=== PATIENT | male | born 1945 | race Caucasian/White ===

== ENCOUNTER → 2017-09-03 11:36 | Outpatient (CLI) | payer MEDICARE, OTHER, SELFPAY ==
[2017-09-03 15:04] LABS: Adenovirus F 40/41 Not Detected (Not Detect); Astrovirus Not Detected (Not Detect); Campylobacter Not Detected (Not Detect); Clostridium difficile toxin AB Not Detected (Not Detect); Cryptosporidium Not Detected (Not Detect); Cyclospora cayetanensis Not Detected (Not Detect); Entamoeba histolytica Not Detected (Not Detect); Enteroaggregative E.coli Not Detected (Not Detect); Enteropathogenic E.coli Not Detected (Not Detect); Enterotoxigenic E.coli It/st Not Detected (Not Detect); Giardia lamblia Not Detected (Not Detect); Norovirus GI/GII Not Detected (Not Detect); Plesiomonsa shigelloides Not Detected (Not Detect); Rotavirus A Not Detected (Not Detect); Salmonella Not Detected (Not Detect); Shiga-like toxin-prod E.coli Not Detected (Not Detect); Shigella/Enteroinvasive E.coli Not Detected (Not Detect); Vibrio Not Detected (Not Detect); Vibrio cholerae Not Detected (Not Detect); Yersinia enterocolitica Not Detected (Not Detect)
== END ==
PROVIDERS: PCP Internal Medicine; Visit Provider Internal Medicine
DX: R19.7 Diarrhea, unspecified (principal)
CPT/HCPCS: 87507

== ENCOUNTER → 2017-09-27 09:52 | Outpatient (CLI) | payer MEDICARE, BC, SELFPAY ==
[2017-09-27 10:22] LABS: Hematocrit 55.1 % (41-53); Hemoglobin 18.2 g/dL (13.5-17.5)
[2017-09-27 10:30] LABS: 585 Gram Check PASS; Zero Check Sebra Scale PASS
[2017-09-27 10:50] LABS: Amount Collected in g 585 GRAM; Dizziness NO; Postdiastolic BP 84; Postsystolic BP 171; Prediastolic 99; Presystolic 164; Pulse 89; Site of phlebotomy RIGHT AC; Swelling NO; Therapeutic Phleb Comment NO COMMENT
== END ==
PROVIDERS: PCP Internal Medicine; Visit Provider Urology
DX: N40.1 Benign prostatic hyperplasia with lower urinary tract symptoms (principal); R71.8 Other abnormality of red blood cells
CPT/HCPCS: 36415; 84153; 85014; 85018; 99195

== ENCOUNTER → 2018-04-12 09:52 | Outpatient (CLI) | payer MEDICARE, OTHER, SELFPAY ==
[2018-04-12 11:43] LABS: 585 Gram Check PASS; Amount Collected in g 585 GRAM; Dizziness NO; Postdiastolic BP 76; Postsystolic BP 134; Prediastolic 80; Presystolic 152; Pulse 94; Site of phlebotomy RIGHT AC; Swelling NO; Therapeutic Phleb Comment NO COMMENT; Zero Check Sebra Scale PASS
[2018-04-12 12:54] LABS: Add Manual Diff / Slide Review NO; Basophils Absolute Auto 100 /uL (0-100); Basophils Percent Auto 0.8 % (0-2); Eosinophils Absolute Auto 100 /uL (0-450); Eosinophils Percent Auto 0.9 % (2-4); Hematocrit 55.5 % (41-53); Hemoglobin 18.4 g/dL (13.5-17.5); Lymphocytes Absolute Auto 1200 /uL (1100-4500); Lymphocytes Percent Auto 15.7 % (25-40); Mean Corpuscular HGB Conc 33.2 % (30-36); Mean Corpuscular Hemoglobin 28.7 PG (26-34); Mean Corpuscular Volume 86.5 fL (80-100); Monocytes Absolute Auto 700 /uL (0-900); Monocytes Percent Auto 9.8 % (3-14); Neutrophils Absolute Auto 5600 /uL (1500-7000); Neutrophils Percent Auto 72.8 % (50-75); Platelet Count 199 X10^3/uL (150-400); Red Blood Cell Count 6.41 X10^6/uL (4.5-5.9); Red Cell Distribution Width 18.5 % (11.6-14.8); White Blood Cell Count 7.6 X10^3/uL (4.5-11.0)
== END ==
PROVIDERS: PCP Internal Medicine; Visit Provider Internal Medicine
DX: D75.1 Secondary polycythemia (principal)
CPT/HCPCS: 85025; 99195

== ENCOUNTER 2018-06-23 05:45 | Inpatient (IN) | payer MEDICARE, OTHER, SELFPAY ==
[2018-06-23] VITALS (13 sets, daily range): BP systolic 92–140; BP diastolic 54–76; PULSE 76–129; RESP 14–20; TEMP 36.6–39.6; O2SAT 94–99; BMI 29.0
--- NOTE | 2018-06-23 | DI.RAD.S_ITS ---
PROCEDURE: XR KUB INDICATIONS: nephrolithiasis TECHNIQUE: One view of the abdomen acquired. COMPARISON: None. FINDINGS: Surgical changes and devices: None. Bowel: Bowel gas pattern is normal. Soft tissues: No suspicious abdominal calcifications. Numerous round calcifications are seen in bilateral lower pelvis more prominent on the right side, likely represent phleboliths. Visualized solid organ contours appear normal in size. Bones: No suspicious bony lesions. IMPRESSION: No gross renal stone or ureteral stone is seen. Likely phleboliths in lower pelvis. Dictated by: Brendan Mason M.D. on 06/23/2018 at 14:14 Approved by: Brendan Mason M.D. on 06/23/2018 at 14:15
--- NOTE | 2018-06-23 05:51 | DI.RAD.S_ITS ---
PROCEDURE: XR CHEST 1V INDICATIONS: sepsis TECHNIQUE: One view of the chest was acquired. COMPARISON: [facility], , CHEST 1 VIEW, 03/31/2015, 2:54. FINDINGS: Surgical changes and devices: None. Lungs and pleura: Lungs are clear. No pleural effusions or pneumothorax. Mediastinum: Mediastinal contours appear normal. Heart size is normal. Bones and chest wall: No suspicious bony lesions. Overlying soft tissues appear unremarkable. IMPRESSION: No acute cardiopulmonary pathology. Dictated by: Brendan Mason M.D. on 06/23/2018 at 10:18 Approved by: Brendan Mason M.D. on 06/23/2018 at 10:19
[2018-06-23 06:14] LABS: Add Manual Diff / Slide Review NO; Basophils Absolute Auto 0 /uL (0-100); Basophils Percent Auto 0.2 % (0-2); Eosinophils Absolute Auto 0 /uL (0-450); Eosinophils Percent Auto 0.1 % (2-4); Hemoglobin 16.4 g/dL (13.5-17.5); Lymphocytes Absolute Auto 300 /uL (1100-4500); Mean Corpuscular HGB Conc 33.3 % (30-36); Mean Corpuscular Hemoglobin 28.8 PG (26-34); Mean Corpuscular Volume 86.2 fL (80-100); Monocytes Absolute Auto 300 /uL (0-900); Monocytes Percent Auto 2.4 % (3-14); Neutrophils Absolute Auto 10200 /uL (1500-7000); Neutrophils Percent Auto 94.3 % (50-75); Platelet Count 160 X10^3/uL (150-400); Red Blood Cell Count 5.69 X10^6/uL (4.5-5.9); Red Cell Distribution Width 14.8 % (11.6-14.8); White Blood Cell Count 10.8 X10^3/uL (4.5-11.0)
[2018-06-23 06:21] LABS: Lactate (Lactic Acid) 1.4 mmol/L (0.7-2.1)
--- NOTE | 2018-06-23 06:25 | ED_ITS ---
HPI - Fever General Chief Complaint: Fever Stated Complaint: TEMP FOR 4 DAYS UP TO 102, SHAKING Time Seen by Provider: 06/23/18 05:48 Source: patient and family Mode of arrival: ambulatory Limitations: no limitations History of Present Illness HPI Narrative: 72-year-old male nonsmoker history of chronic kidney disease, hypertension, polycythemia presents with his and a chief complaint of fever chills and generalized weakness for the past few days. He had a left total knee arthroplasty on May 06 and things went quite well and the aftermath of the surgery. He had his 6 week follow-up and all was well. patient started feeling under the weather few days ago and is now profoundly weak and lightheaded with dark concentrated urine. He has had nausea but no vomiting. He has some general gastrointestinal upset with some loose stools but no significant diarrhea. Patient has some pain in his left knee and it feels warm to the touch but denies any redness or swelling. He is able to ambulate without much difficulty. He contacted his primary care provider whom sent him here for evaluation. He did not have his flu shot but denies any runny nose, sore throat, headache, cough or shortness of breath. patient took extra strength Tylenol at 5:00 a.m. complaint: fever, malaise and weakness Onset (ago): day(s) Maximum Temperature: 103 F Temperature Source: oral Associated symptoms: chills Treatments prior to arrival fever: acetaminophen Related Data Home Medications Medication Instructions Recorded Confirmed aspirin 81 mg tablet,delayed 81 mg PO DAILY 06/17/18 06/23/18 release lisinopril 10 mg tablet 10 mg PO DAILY 06/17/18 06/23/18 testosterone cypionate 06/17/18 06/17/18 Resprionics Dreamstation CPAP #1 ea 06/19/18 06/19/18 amlodipine 5 mg tablet 5 mg PO DAILY 06/19/18 06/23/18 nicotinamide Ribdside Chloride 250 mg PO DAILY 06/19/18 06/23/18 nortriptyline 25 mg capsule 25 mg PO BID cap 06/19/18 06/23/18 pantoprazole 40 mg tablet,delayed 40 mg PO DAILY 06/19/18 06/23/18 release Hjxhrv-Ecyc-Tueyux-Fish Oil 1 cap PO DAILY 06/23/18 06/23/18 Trimix 06/23/18 Tumeric 500 mg PO DAILY 06/23/18 06/23/18 acetaminophen [Tylenol Extra 1 tab PO PRN PRN 06/23/18 06/23/18 Strength] cholecalciferol (vitamin D3) 2,000 unit PO DAILY 06/23/18 06/23/18 [Vitamin D3] cyanocobalamin (vitamin B-12) 1,000 mcg IM QMONTH 06/23/18 06/23/18 docosahexanoic acid [Algal [place]-3 1 tab PO DAILY 06/23/18 06/23/18 DHA] potassium 10 meq PO 2XW 06/23/18 06/23/18 Allergies Allergy/AdvReac Type Severity Reaction Status Date / Time EGGS Allergy Mild Uncoded 06/23/18 06:01 Review of Systems Review of Systems ROS Unobtainable: All systems reviewed & are unremarkable except as noted in HPI and below Constitutional Reports chills, Reports fever(s), Denies lethargy and Denies weakness Eyes Denies change in vision, Denies eye discharge, Denies irritation and Denies loss of vision ENT Ears, Nose, Mouth, and Throat: Denies change in voice, Denies neck pain and Denies sore throat Cardiovascular Denies chest pain, Denies irregular heart rhythm, Denies lightheadedness, Denies palpitations, Denies dyspnea, Denies dyspnea on exertion and Denies orthopnea Respiratory Denies cough, Denies dyspnea, Denies dyspnea on exertion and Denies wheezing Gastrointestinal Gastrointestinal: Denies abdominal pain, Denies change in bowel habits, Denies diarrhea, Denies nausea and Denies vomiting Genitourinary Denies hematuria, Denies flank pain, Denies urinary incontinence and Denies urinary urgency Musculoskeletal Reports limited range of motion and Denies neck pain Integumentary/Breasts Denies pruritus, Denies erythema, Denies rash and Denies wounds Neurologic Denies confusion, Denies loss of vision and Denies weakness Psychiatric Denies anxiety, Denies confusion, Denies depression, Denies homicidal ideation and Denies suicidal ideation Endocrine Denies palpitations Hematologic/Lymphatic Denies easy bruising Allergic/Immunologic Denies wheezing [facility] Medical History (Updated 06/23/18 @ 06:47 by Sergey Mejias DO) Primary insomnia (Chronic) Obstructive sleep apnea of adult (Chronic) Arthritis (Acute) Global amnesia (Acute) HTN (hypertension) (Acute) Hypogonadism (Acute) Polycythemia (Acute) Surgical History Total knee replacement status (Acute) Social History Smoking Status: Never smoker Social History Smoking Status: Never smoker Exam Narrative Exam Narrative: GENERAL: 72-year-old male appears stated age, he is in good spirits but clearly sick HEAD: Atraumatic. Normocephalic. No temporal or scalp tenderness. EYES: Pupils equal round and reactive. Extraocular motions intact. No scleral icterus. No injection or drainage. ENT: Nose without bleeding, purulent drainage or septal hematoma. Throat without erythema, tonsillar hypertrophy or exudate. Uvula midline. Airway patent. NECK: Trachea midline. No JVD or lymphadenopathy. Supple, nontender, no meningeal signs. CARDIOVASCULAR: Tachycardic but regular rhythm without murmurs, gallops, or rubs. RESPIRATORY: Clear to auscultation. Breath sounds equal bilaterally. No wheezes, rales, or rhonchi. GASTROINTESTINAL: Abdomen soft, non-tender, nondistended. No hepato- splenomegaly, or palpable masses. No guarding. EXTREMITIES: Left knee is warm but there is no erythema or effusion. He has a very impressive range of motion both passively and actively. Incisions are healing appropriately No clubbing, cyanosis, or edema. No joint tenderness, effusion, or edema noted. BACK: Nontender without deformity or crepitance. No flank tenderness. NEURO: AOx3. SKIN: No rash or erythema. Initial Vital Signs Initial Vital Signs: Vital Signs Temperature 103 F H 06/23/18 06:01 Pulse Rate 129 H 06/23/18 06:01 Respiratory Rate 20 06/23/18 06:01 Blood Pressure 137/76 06/23/18 06:01 Pulse Oximetry 99 06/23/18 06:01 Course Orders Ordered: ED Orders 06/23/18 05:51 XR chest 1V Stat 06/23/18 06:01 Complete Blood Count AUTO DIFF Stat Comprehensive Metabolic Panel Stat Lactate (Lactic Acid) Stat Procalcitonin Stat 06/23/18 06:19 GI Panel (Film Array) Stat 06/23/18 06:23 Influenza A and B by PCR Rapid Stat 06/23/18 06:33 Blood Culture Stat Urine Microscopic Stat Sodium Chloride (Normal Saline 0.9%) 3,333.9 mls @ 1,111.3 mls/hr 30 ml/kg infuse over 3 hr (3333.9 ml) IV NOW ONE Stop: 06/23/18 09:01 Last Admin: 06/23/18 06:35 Dose: 1,111.3 mls/hr Ceftriaxone Sodium/Dextrose (Rocephin) 1 gm in 50 mls @ 100 mls/hr IV NOW ONE Stop: 06/23/18 06:59 Last Admin: 06/23/18 06:36 Dose: 100 mls/hr Discontinued Medications Acetaminophen (Tylenol) 975 mg PO NOW ONE Stop: 06/23/18 06:20 Vital Signs - 8 hr 06/23/18 06:01 Temperature 103 F H Pulse Rate 129 H Respiratory Rate 20 Blood Pressure 137/76 Pulse Oximetry 99 MDM - Fever Lab Data Result diagrams: 06/23/18 06:01 06/23/18 06:01 Lab Results 06/23/18 06/23/18 06/23/18 Range/Units 06:01 06:01 06:01 WBC 10.8 (4.5-11.0) X10^3/uL RBC 5.69 (4.5-5.9) X10^6/uL Hgb 16.4 (13.5-17.5) g/dL Hct 49.0 (41-53) % MCV 86.2 (80-100) fL MCH 28.8 (26-34) PG MCHC 33.3 (30-36) % RDW 14.8 (11.6-14.8) % Plt Count 160 (150-400) X10^3/uL Neut % (Auto) 94.3 H (50-75) % Lymph % (Auto) 3.0 L (25-40) % [place] % (Auto) 2.4 L (3-14) % Eos % (Auto) 0.1 L (2-4) % Baso % (Auto) 0.2 (0-2) % Neut # (Auto) 54052 H (8440-6870) /uL Lymph # (Auto) 300 L (5058-2045) /uL [place] # (Auto) 300 (0-900) /uL Eos # (Auto) 0 (0-450) /uL Baso # (Auto) 0 (0-100) /uL Sodium 134 L (137-145) mmol/L Potassium 4.1 (3.4-5.1) mmol/L Chloride 101 (98-107) mmol/L Carbon Dioxide 22 (22-32) mmol/L BUN 22 H (9-20) mg/dL Creatinine 1.20 (0.66-1.25) mg/dL Estimated GFR 59.7 L (>60) mL/min BUN/Creatinine Ratio 18.3 (6-22) Glucose 121 H (80-110) mg/dL Lactate 1.4 (0.7-2.1) mmol/L Calcium 9.1 (8.4-10.2) mg/dL Total Bilirubin 2.3 H (0.2-1.3) mg/dL AST 23 (17-59) IU/L ALT 19 L (21-72) IU/L Alkaline Phosphatase 93 (38-126) U/L Total Protein 7.3 (6.3-8.2) g/dL Albumin 4.1 (3.5-5.0) g/dL Globulin 3.2 (1.7-4.1) g/dL Albumin/Globulin Ratio 1.3 (1.0-2.8) Urine Dip Bedside Urine Glucose Negative Bedside Urine Bilirubin - Negative Bedside Urine Ketone +/- 5 Urine Specific [place] 1.025 Bedside Urine Occult Blood +/- Bedside Urine pH 5.5 Bedside Urine Protein + 30 Bedside Urine Urobilinogen +/- 1mg Bedside Urine Nitrite + Positive Bedside Urine Leukocytes ++ 125 Esterase MDM Narrative Medical decision making narrative: 72-year-old male with septic picture presents with very nonspecific symptoms. His recent left knee surgery raises the suspicion of septic arthritis, however there is no effusion, erythema and the patient has very impressive, full passive and active range of motion. There is nothing to tap. Patient has had no upper respiratory symptoms. He frequently has urinary urgency but thinks it may have been increased over the past couple of days. Septic pathway was initiated and despite no white count or elevated lactate the temperature of 103? with elevated heart rate and rigors clearly demonstrates the need for hospitalization for further characterization and stabilization of his illness. Dr. Sandoval is happy to accept on the hospitalist service Discharge Plan Departure Patient Disposition: Admitted as Observation Clinical Impression: Acute UTI Sepsis Qualifiers: Sepsis type: sepsis due to unspecified organism Qualified Code(s): A41.9 - Sepsis, unspecified organism
[2018-06-23 06:29] LABS: Alanine Aminotransferase 19 IU/L (21-72); Albumin 4.1 g/dL (3.5-5.0); Albumin Globulin Ratio 1.3 (1.0-2.8); Alkaline Phosphatase 93 U/L (38-126); Aspartate Aminotransferase 23 IU/L (17-59); BUN Creatinine Ratio 18.3 (6-22); Bilirubin Total 2.3 mg/dL (0.2-1.3); Blood Urea Nitrogen 22 mg/dL (9-20); Calcium 9.1 mg/dL (8.4-10.2); Carbon Dioxide 22 mmol/L (22-32); Chloride 101 mmol/L (98-107); Estimated Glomerular Filt Rate 59.7 mL/min (>60); Globulin 3.2 g/dL (1.7-4.1); Glucose 121 mg/dL (80-110); HEMOLYSIS 28 (0-50); Potassium 4.1 mmol/L (3.4-5.1); Sodium 134 mmol/L (137-145); Total Protein 7.3 g/dL (6.3-8.2)
[2018-06-23] MEDS: SODIUM CHLORIDE 0.9% 1111.3 ML IV (06:35)
[2018-06-23] MEDS: CEFTRIAXONE 1 GM/50 ML FROZ.PIGGY IV (06:36)
[2018-06-23 06:49] LABS: Procalcitonin 0.97 ng/mL (<0.5)
[2018-06-23 06:51] LABS: Influenza A and B by PCR Rapid Negative (Negative)
[2018-06-23 06:54] LABS: Bacteria Urine Few (2-10); Culture Indicated Urine Specimen Cultured; RBC Urine 0-1/HPF (0-5/HPF); Squamous Epithelial Cell Urine 1-5 /HPF; WBC Urine 10-30/HPF (0-5/HPF)
[2018-06-23] MEDS: KETOROLAC 60 MG/2 ML VIAL 15 MG IV (07:06)
--- NOTE | 2018-06-23 07:14 | PC.NURSE ---
obtained patient, patient shaking feels like my temperature is climbing Recheck temp 103.2. Discussed with provider. Order for Ketorlac given. Medicated patient and provided cool compress.
--- NOTE | 2018-06-23 08:30 | PM.HP.1 ---
History of Present Illness Date Patient Seen: 06/23/18 Chief complaint: TEMP FOR 4 DAYS UP TO 102, SHAKING Narrative: Venancio uAstin is a 72-year-old male with past medical history significant for hypertension, nephrolithiasis (asymptomatic of kidney stones) status post lithotripsy, CKD stage 3, GERD with dysphagia and delayed esophageal motility, and recent left total knee replacement on 04/27/2018 who presented for rigors and fever. The patient reports that he has had severe chills and shaking which prompted him to come in. He has had a fever persistently for the last 1 week. He reports 1-2 days of loose stool last week. He reports his appetite has been poor. He denies upper respiratory symptoms including cough, congestion, rhinitis, sore throat, nausea or vomiting. He also denies abdominal pain. he does endorse chronic urinary urgency with mild incontinence that has been increasing over the last week. He also has had increased frequency of urination and decreased urine output. He has no other complaints. Of note, his recently had C. difficile colitis. In chest x-ray was negative for acute cardiopulmonary process. Blood cultures x2 and urine culture pending. Urinalysis appears grossly infected. WBC normal at 10.8 with 94% PMNs. He was admitted for further evaluation and treatment of UTI. Patient History Medical History (Updated 06/23/18 @ 20:41 by Shruthi Garduno DO) Primary insomnia (Inactive) Obstructive sleep apnea of adult (Chronic) Ankle fracture, right (Acute) Arthritis (Acute) Dysphagia (Acute) GERD (gastroesophageal reflux disease) (Acute) Global amnesia (Acute) HTN (hypertension) (Acute) Hypogonadism (Acute) Idiopathic neuropathy (Acute) Nephrolithiasis (Acute) Polycythemia (Acute) Surgical History (Updated 06/23/18 @ 20:41 by Shruthi Garduno DO) H/O lithotripsy (Acute) Status post ORIF of fracture of ankle (Acute) Total knee replacement status (Acute) Family History (Updated 06/23/18 @ 20:39 by Shruthi Garduno DO) Mother Parkinson disease Father Hypertension TIA (transient ischemic attack) Osteoarthritis Social History household members: spouse Smoking Status: Never smoker Family & Social History Family History (Updated 06/23/18 @ 20:39 by Shruthi Garduno DO) Mother Parkinson disease Father Hypertension TIA (transient ischemic attack) Osteoarthritis Safety & Behavioral: Feels Safe in Current Yes Environment Been Physically Hurt or No Threatened By a Person Tobacco & Substance use: Smoking Status Never smoker alcohol intake frequency a few times a month Substance Use Type does not use The patient has been for 50 years. He has 2 children a son and daughter who are both healthy. 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 Meds Home Medications Medication Instructions Recorded Confirmed Type aspirin 81 mg tablet,delayed 81 mg PO DAILY 06/17/18 06/23/18 History release lisinopril 10 mg tablet 10 mg PO DAILY 06/17/18 06/23/18 History testosterone cypionate 06/17/18 06/17/18 History Resprionics Dreamstation CPAP #1 ea 06/19/18 06/19/18 History amlodipine 5 mg tablet 5 mg PO DAILY 06/19/18 06/23/18 History nicotinamide Ribdside Chloride 250 mg PO DAILY 06/19/18 06/23/18 History nortriptyline 25 mg capsule 25 mg PO BID cap 06/19/18 06/23/18 History pantoprazole 40 mg tablet,delayed 40 mg PO DAILY 06/19/18 06/23/18 History release Ulfqbv-Ytsy-Qkqlaj-Fish Oil 1 cap PO DAILY 06/23/18 06/23/18 History Trimix 06/23/18 History Tumeric 500 mg PO DAILY 06/23/18 06/23/18 History acetaminophen [Tylenol Extra 1 tab PO PRN PRN 06/23/18 06/23/18 History Strength] cholecalciferol (vitamin D3) 2,000 unit PO DAILY 06/23/18 06/23/18 History [Vitamin D3] cyanocobalamin (vitamin B-12) 1,000 mcg IM QMONTH 06/23/18 06/23/18 History docosahexanoic acid [Algal [place]-3 1 tab PO DAILY 06/23/18 06/23/18 History DHA] potassium 10 meq PO 2XW 06/23/18 06/23/18 History Allergies Allergy/AdvReac Type Severity Reaction Status Date / Time EGGS Allergy Mild Uncoded 06/23/18 06:01 Review of Systems Review of Systems A 10 system comprehensive review of systems was conducted with the patient and found to be negative except as above in the History of Present Illness. Exam Vital Signs (past 8 hours): - 06/23/18 06:01 06/23/18 06:30 06/23/18 07:06 Temperature 103 F H 103.2 F H Pulse Rate 129 H 109 H Respiratory Rate 20 16 Blood Pressure 137/76 Blood Pressure [Left Arm] 123/69 Pulse Oximetry 99 95 06/23/18 07:19 Temperature 103.2 F H Pulse Rate 114 H Respiratory Rate 18 Blood Pressure Blood Pressure [Left Arm] 140/73 Pulse Oximetry 94 Oxygen Delivery Method Room Air Narrative Exam Narrative: General: Elderly gentleman sitting in bed and in no acute distress, mildly diaphoretic and flushed, well-developed, well-nourished, appropriately interactive. HEENT: Normocephalic, atraumatic. External ears without defect. Pupils equal, round, and reactive to light. Anicteric sclerae, moist conjunctivae, and no lid lag. Oropharynx free of erythema and cobble stoning with moist mucosa. Neck: Supple with full range of motion.No lymphadenopathy or thyromegaly. Cardiovascular: Regular rate and rhythm without murmurs, rubs, or gallops appreciated. Pulmonary: Clear to auscultation bilaterally without crackles, wheezes, or rhonchi. Normal respiratory effort with no use of accessory muscles. Abdomen: Soft, bowel sounds present, nontender, nondistended. No suprapubic tenderness or flank pain. No hepatosplenomegaly or masses appreciated. Extremities: No clubbing, cyanosis, or edema. Large vertical scar over left knee healed well, no exudate, erythema, or effusion. Skin: Normal temperature, turgor, and texture; no rash, ulcers, or subcutaneous nodules appreciated. Neurological: Cranial nerves grossly intact. Normal muscle strength, tone, and bulk. Reflexes, coordination, and sensory function within normal limits. No known gait impairment. Psychiatric: Normal mood and affect. Alert and oriented to person, place, and time. Objective Labs Result Diagrams: 06/23/18 06:01 06/23/18 06:01 Labs: Laboratory Results - last 24 hr 06/23/18 06/23/18 06/23/18 06:01 06:01 06:01 WBC 10.8 RBC 5.69 Hgb 16.4 Hct 49.0 MCV 86.2 MCH 28.8 MCHC 33.3 RDW 14.8 Plt Count 160 Neut % (Auto) 94.3 H Lymph % (Auto) 3.0 L [place] % (Auto) 2.4 L Eos % (Auto) 0.1 L Baso % (Auto) 0.2 Neut # (Auto) 69481 H Lymph # (Auto) 300 L [place] # (Auto) 300 Eos # (Auto) 0 Baso # (Auto) 0 Sodium 134 L Potassium 4.1 Chloride 101 Carbon Dioxide 22 BUN 22 H Creatinine 1.20 Estimated GFR 59.7 L BUN/Creatinine Ratio 18.3 Glucose 121 H Lactate Calcium 9.1 Total Bilirubin 2.3 H AST 23 ALT 19 L Alkaline Phosphatase 93 Total Protein 7.3 Albumin 4.1 Globulin 3.2 Albumin/Globulin Ratio 1.3 Procalcitonin 0.97 H Urine RBC Urine WBC Ur Squamous Epith Cells Urine Bacteria Ur Culture Indicated? Influenza A & B (PCR) 06/23/18 06/23/18 06/23/18 06:01 06:23 06:33 WBC RBC Hgb Hct MCV MCH MCHC RDW Plt Count Neut % (Auto) Lymph % (Auto) [place] % (Auto) Eos % (Auto) Baso % (Auto) Neut # (Auto) Lymph # (Auto) [place] # (Auto) Eos # (Auto) Baso # (Auto) Sodium Potassium Chloride Carbon Dioxide BUN Creatinine Estimated GFR BUN/Creatinine Ratio Glucose Lactate 1.4 Calcium Total Bilirubin AST ALT Alkaline Phosphatase Total Protein Albumin Globulin Albumin/Globulin Ratio Procalcitonin Urine RBC 0-1/hpf Urine WBC 10-30/hpf H Ur Squamous Epith Cells 1-5 /hpf Urine Bacteria Few (2-10) H Ur Culture Indicated? Specimen cultured Influenza A & B (PCR) Negative Assessment & Plan Assessment & Plan narrative: Venancio Austin is a 72-year-old male with past medical history significant for hypertension, nephrolithiasis (asymptomatic of kidney stones) status post lithotripsy, CKD stage 3, GERD with dysphagia and delayed esophageal motility, and recent left total knee replacement on 04/27/2018 who presented for rigors and fever. 1. Acute urinary tract infection, present on admission. Active. -Patient had increased urgency from baseline, increased frequency, and decreased urine output with fever (103) and rigors. -Urinalysis appeared grossly infected with urine culture pending. -Continue ceftriaxone 2 g daily. -Ordered KUB to assess nephrolithiasis as nidus for infection which was negative. -Continue normal saline at 100 mL/hr. Received 3 L NS bolus in ED. If eating and drinking well will discontinue. 2. Acute gastroenteritis, present on admission. Active. -Patient reports loose stools last week for several days, as well as, decreased appetite and p.o. intake. -GI PCR positive for EPEC. -Continue ceftriaxone as above. Discussed case with Dr. Delarosa of Infectious Disease, who recommends ceftriaxone 2 g daily unless urine growing enterococcus will need to be switched to ciprofloxacin or Bactrim. May treat infectious diarrhea with antibiotics but usually self-limited. Only unable to use antibiotics which Shigella toxin producing infectious diarrhea. 3. Chronic kidney disease stage 3, present on admission. Stable. -Initial creatinine 1.2. Unclear baseline. -Based on GFR patient does not have stage 3 kidney disease? -Avoid nephrotoxic agents. -Continue IV fluid hydration as above. 4. Hypertension, chronic, present on admission. Stable. -Patient on amlodipine 5 mg daily and lisinopril 10 mg daily. Will hold for now as blood pressure has been low normal. 5. Idiopathic peripheral neuropathy, chronic, present on admission. Stable. -Continue nortriptyline 25 mg twice daily. 6. GERD with dysphagia, chronic, present on admission. Stable. -Patient reports decreased esophageal motility with dysphagia secondary to GERD and only treatable with PPI?? -Continue pantoprazole 40 mg daily. Patient is admitted under observation status with expected length of stay less than 2 midnights due to severity of presenting symptoms, risk of adverse event, and complexity of treatment plan.
[2018-06-23 08:46] LABS: Magnesium 1.9 mg/dL (1.6-2.3)
[2018-06-23] MEDS: ACETAMINOPHEN 325 MG TABLET 975 MG PO (08:46)
[2018-06-23] MEDS: SODIUM CHLORIDE 0.9% 1,000 ML 100 ML IV (10:32)
[2018-06-23] MEDS: HEPARIN 5,000 UNIT/ML VIAL 5000 UNIT SUBCUT ×2 (10:32→21:39)
[2018-06-23 16:56] LABS: Campylobacter Not Detected (Not Detect); Clostridium difficile toxin AB Not Detected (Not Detect); Enteroaggregative E.coli Not Detected (Not Detect); Enteropathogenic E.coli Detected (Not Detect); Plesiomonsa shigelloides Not Detected (Not Detect); Salmonella Not Detected (Not Detect); Vibrio Not Detected (Not Detect); Vibrio cholerae Not Detected (Not Detect); Yersinia enterocolitica Not Detected (Not Detect)
[2018-06-23 16:57] LABS: Adenovirus F 40/41 Not Detected (Not Detect); Astrovirus Not Detected (Not Detect); Cryptosporidium Not Detected (Not Detect); Cyclospora cayetanensis Not Detected (Not Detect); Entamoeba histolytica Not Detected (Not Detect); Enterotoxigenic E.coli It/st Not Detected (Not Detect); Giardia lamblia Not Detected (Not Detect); Norovirus GI/GII Not Detected (Not Detect); Rotavirus A Not Detected (Not Detect); Sapovirus Not Detected (Not Detect); Shiga-like toxin-prod E.coli Not Detected (Not Detect); Shigella/Enteroinvasive E.coli Not Detected (Not Detect)
[2018-06-23 17:19] LABS: Adenovirus Not Detected (Not Detect); Bordetella pertussis Not Detected (Not Detect); Chlamydophila pneumoniae Not Detected (Not Detect); Coronavirus 229E Not Detected (Not Detect); Coronavirus HKU1 Not Detected (Not Detect); Coronavirus NL 63 Not Detected (Not Detect); Coronavirus OC43 Not Detected (Not Detect); Human Metapneumovirus Not Detected (Not Detect); Human Rhinovirus/Enterovirus Not Detected (Not Detect); Influenza A Not Detected (Not Detect); Influenza B Not Detected (Not Detect); Mycoplasma pneumoniae Not Detected (Not Detect); Parainfluenza Virus 1 Not Detected (Not Detect); Parainfluenza Virus 2 Not Detected (Not Detect); Parainfluenza Virus 3 Not Detected (Not Detect); Parainfluenza Virus 4 Not Detected (Not Detect); Respiratory Syncytial Virus Not Detected (Not Detect)
[2018-06-23] MEDS: NORTRIPTYLINE HCL 25 MG CAPSULE PO (21:39)
--- NOTE | 2018-06-23 22:16 | PC.NURSE ---
Addendum entered by Rosa Díaz R.N. 06/23/18 22:38: Jus called from lab to report 3 of 4 blood culture tubes positive for Klebsiella Oxytoca gram negative bacilli. Dr Sandoval notified via phone call, no new orders given. Original Note: Evening note: Venancio Ox3, denies any pain, nausea or concerns. IV is saline locked. Ambulatory in room, gait steady. Reports voiding, denies any diarrhea tonight, did tell me he had BM. Stool culture growing EPEC, which is an enteric e-coli. Dr Garduno in room to discuss test result with patient. I have kept him on standard isolation tonight as he is continent of urine/stool, ambulatory and does not have dementia. He showered, now visiting with his spouse in room. Encouraged to call staff if he needs assistance tonight.
[2018-06-23 22:26] LABS: Enterococcus species Not Detected (Not Detect); Listeria monocytogenes Not Detected (Not Detect); Staphylococcus species Not Detected (Not Detect); Streptococcus agalactiae (Gr B Not Detected (Not Detect); Streptococcus species Not Detected (Not Detect)
[2018-06-23 22:27] LABS: Acinetobacter baumannii Not Detected (Not Detect); E. coli Not Detected (Not Detect); Enterobacter cloacae complex Not Detected (Not Detect); Enterobacteriaceae species Detected (Not Detect); KPC (carbapenem-resist gene) Not Detected (Not Detect); Streptococcus pneumonia Not Detected (Not Detect); Streptococcus pyogenes (Gr A) Not Detected (Not Detect)
[2018-06-23 22:28] LABS: Candida albicans Not Detected (Not Detect); Candida glabrata Not Detected (Not Detect); Candida krusei Not Detected (Not Detect); Candida parapsilosis Not Detected (Not Detect); Candida tropicalis Not Detected (Not Detect); Haemophilus influenzae Not Detected (Not Detect); Neisseria meningitidis Not Detected (Not Detect); Proteus species Not Detected (Not Detect); Pseudomonas aeruginosa Not Detected (Not Detect); Serratia marcescens Not Detected (Not Detect)
[2018-06-23] MEDS: ACETAMINOPHEN 325 MG TABLET 650 MG PO (22:38)
[2018-06-24] VITALS (13 sets, daily range): BP systolic 115–149; BP diastolic 70–82; PULSE 75–104; RESP 16–20; TEMP 36.2–38.9; O2SAT 96–99
[2018-06-24 05:38] LABS: Add Manual Diff / Slide Review NO; Basophils Absolute Auto 0 /uL (0-100); Basophils Percent Auto 0.3 % (0-2); Eosinophils Absolute Auto 200 /uL (0-450); Eosinophils Percent Auto 1.7 % (2-4); Hematocrit 45.9 % (41-53); Hemoglobin 14.8 g/dL (13.5-17.5); Lymphocytes Absolute Auto 1100 /uL (1100-4500); Lymphocytes Percent Auto 7.9 % (25-40); Mean Corpuscular HGB Conc 32.1 % (30-36); Monocytes Absolute Auto 1700 /uL (0-900); Monocytes Percent Auto 11.8 % (3-14); Neutrophils Absolute Auto 11000 /uL (1500-7000); Neutrophils Percent Auto 78.3 % (50-75); Platelet Count 161 X10^3/uL (150-400); Red Blood Cell Count 5.28 X10^6/uL (4.5-5.9); Red Cell Distribution Width 14.8 % (11.6-14.8); White Blood Cell Count 14.1 X10^3/uL (4.5-11.0)
[2018-06-24 06:11] LABS: BUN Creatinine Ratio 21.8 (6-22); Blood Urea Nitrogen 24 mg/dL (9-20); Calcium 8.8 mg/dL (8.4-10.2); Carbon Dioxide 26 mmol/L (22-32); Chloride 103 mmol/L (98-107); Estimated Glomerular Filt Rate > 60.0 mL/min (>60); Glucose 106 mg/dL (80-110); HEMOLYSIS 16 (0-50); Sodium 137 mmol/L (137-145)
[2018-06-24 06:26] LABS: Procalcitonin 22.54 ng/mL (<0.5)
[2018-06-24] MEDS: CEFTRIAXONE 2 GM/50 ML FROZ.PIGGY IV (07:02)
[2018-06-24] MEDS: SODIUM CHLORIDE 0.9% FLUSH 10 ML IV ×3 (07:02→21:42)
[2018-06-24] MEDS: LACTOBACILLUS ACIDOPHILUS TABLET 1 EACH PO ×2 (09:18→17:05)
[2018-06-24] MEDS: HEPARIN 5,000 UNIT/ML VIAL 5000 UNIT SUBCUT ×2 (09:18→21:41)
[2018-06-24] MEDS: PANTOPRAZOLE 40 MG TABLET PO (09:18)
[2018-06-24] MEDS: NORTRIPTYLINE HCL 25 MG CAPSULE PO ×2 (09:18→21:42)
[2018-06-24] MEDS: ASPIRIN EC 81 MG TABLET PO (09:18)
--- NOTE | 2018-06-24 15:24 | CM.DANOTE ---
Discharge Planning/Care Management DCP: assessment: case received, EMR reviewed and went to room to check in with pt. He was found sitting up in bed, smiling, talking on the phone. Nursing staff at bedside waiting for him to get off the phone. WB in his room is updated with [facility] contact info. Pt is a 72 year old male who admitted to care of the hospitalist team yesterday. Full dx and POC is in process but he is being treated for infections in Urinary tract and in stool. No specialized precautions are posted at this time. Payer: Medicare and [facility]. PCP: Dr. Bria Sandoval. Pt lives with his Demetra in [place]. Per reports he had a L TKA 04/27/18: do not see that he had this at . Will follow prn as POC unfolds to assist with d/c issues and options. Dr. Fletcher's note is not yet available for today. Will check in with her tomorrow in Team Rounds. Advanced directive, confirm from FAMILY Start: 06/23/18 09:49 Freq: Q24H Status: Active Protocol: Document 06/24/18 09:43 TJB (Rec: 06/24/18 09:43 TJB [id number]) Advance Directive, confirm on record Time 09:43 Person contacted pt/spouse Copy received No CM Discharge Assessment Start: 06/24/18 15:22 Freq: Status: Active Protocol: Document 06/24/18 15:24 ITV (Rec: 06/24/18 15:24 ITV [id number]) Discharge Planning Assessment Advance Directives? Yes Advance Directives on File No History Provided By Patient Family Member Medical Record Prior Living Arrangements House Household Members spouse Is patient alert and oriented? Yes Whiteboard Updated in Patient Room with Yes name and ext. # of [employer] Director Review Status In Process Next Review Type Continued Stay Review
--- NOTE | 2018-06-24 16:52 | P.PN_ITS ---
Subjective Date Patient Seen: 06/24/18 Time Patient Seen: 16:30 Interval history: Venancio Austin is a 71 y.o. who was admitted and found to have sepsis secondary to a UTI. He states he is improved since yesterday, was calling during the visit, and told her to speak to me since he was on drugs. Would like to go home if possible. Denies flank pain, but does have lumbar pain which is chronic. States he is mildly constipated with slow bms. Asked about CKD stage 3, he stated his PCP diagnosed this and referred him to a casting repairer in [place]. After a lot of tests, per patient, the casting repairer told him the diagnosis was incorrect. Exam Vital Signs (past 8 hours): - 06/24/18 13:00 06/24/18 15:40 06/24/18 15:43 Temperature 98.8 F 99.1 F Pulse Rate 93 H 91 H Respiratory Rate 16 16 Blood Pressure 132/75 135/82 Pulse Oximetry 97 97 97 Oxygen Delivery Method Room Air Oxygen Flow Rate 0 Const Other: General: 72-year-old male is in no distress and conversing appropriately. HEENT: Head is normocephalic atraumatic mucosa is clear and moist. Neck: Supple no JVD CV: Regular rate and rhythm no murmur rubs normal S1 and S2 GI: Abdomen is soft and obese, nontender, no CVA tenderness MS: Moves all extremities, full range of motion, no deformities noted of back a nd spine. Skin: Dry and intact with no rashes. He has a history of venous stasis however his lower extremities appear stable from that standpoint. Neuro: Alert and oriented x3, normal thought process. Extremities: Negative Homans sign Psych: normal mood and affect Objective Labs Result Diagrams: 06/24/18 05:16 06/24/18 05:16 Labs: Laboratory Results - last 24 hr 06/23/18 06/23/18 06/23/18 06:02 14:30 15:20 WBC RBC Hgb Hct MCV MCH MCHC RDW Plt Count Neut % (Auto) Lymph % (Auto) [place] % (Auto) Eos % (Auto) Baso % (Auto) Neut # (Auto) Lymph # (Auto) [place] # (Auto) Eos # (Auto) Baso # (Auto) Sodium Potassium Chloride Carbon Dioxide BUN Creatinine Estimated GFR BUN/Creatinine Ratio Glucose Calcium Procalcitonin Stl C. cayetanensis PCR Not detected Stool Rotavirus (PCR) Not detected Stool Adenovirus (PCR) Not detected Stool Astrovirus (PCR) Not detected Stool Cryptosporidium PCR Not detected Stl E.coli Shiga Tox PCR Not detected St Sh/Enteroin Ecoli PCR Not detected Stool E coli O157 PCR Not Reportable Stl Enterotoxigenic E PCR Not detected Stool EPEC (PCR) Detected H Stl E. histolytica PCR Not detected Stool Giardia Lamblia PCR Not detected Stool Sapovirus (PCR) Not detected Stl P. shigelloides PCR Not detected St Y.enterocolitica PCR Not detected Stool Vibrio (PCR) Not detected Stl Vibrio cholerae PCR Not detected Stl Enteroaggr Ecoli PCR Not detected Stl Norovirus GI/GII PCR Not detected A. baumannii (PCR) Not detected Chlamy pneumoniae PCR Not detected Adenovirus (PCR) Not detected B.parapertussis DNA PCR Not detected Campylobacter (PCR) Not detected María albicans (PCR) Not detected C. glabrata (PCR) Not detected C. krusei (PCR) Not detected C. parapsilosis (PCR) Not detected C. tropicalis (PCR) Not detected C. difficile Tox (PCR) Not detected Coronavirus OC43 (PCR) Not detected Coronavirus HKU1 (PCR) Not detected Coronavirus 229E (PCR) Not detected Coronavirus NL63 (PCR) Not detected Enterobacteriac sp PCR Detected H E. cloacae complex PCR Not detected Enterococcus sp PCR Not detected E. coli (PCR) Not detected H. influenzae (PCR) Not detected Human Metapneumovir PCR Not detected Influenza Type A (PCR) Not detected Influenza Type B (PCR) Not detected Klebsiella oxytoca PCR Detected H Klebsiella pneumoniae Not detected List. monocytogenes PCR Not detected M. pneumoniae (PCR) Not detected N. meningitidis (PCR) Not detected Parainfluenza 1 (PCR) Not detected Parainfluenza 2 (PCR) Not detected Parainfluenza 3 (PCR) Not detected Parainfluenza 4 (PCR) Not detected Proteus species (PCR) Not detected RSV (PCR) Not detected Entero/Rhino (PCR) Not detected Salmonella (PCR) Not detected Serratia marcescens PCR Not detected Staphylococcus sp PCR Not detected Staph aureus (PCR) Not detected mecA-Methicil Res Gene Not Reportable Streptococcus sp PCR Not detected Group A Strep (PCR) Not detected Strep agalactiae (PCR) Not detected Strep pneumoniae (PCR) Not detected P. aeruginosa (PCR) Not detected Venancio/B-Vanco Res Genes Not Reportable KPC-Carbap Res Gene PCR Not detected 06/24/18 06/24/18 06/24/18 05:16 05:16 05:16 WBC 14.1 H RBC 5.28 Hgb 14.8 Hct 45.9 MCV 87.0 MCH 28.0 MCHC 32.1 RDW 14.8 Plt Count 161 Neut % (Auto) 78.3 H Lymph % (Auto) 7.9 L [place] % (Auto) 11.8 Eos % (Auto) 1.7 L Baso % (Auto) 0.3 Neut # (Auto) 65164 H Lymph # (Auto) 1100 [place] # (Auto) 1700 H Eos # (Auto) 200 Baso # (Auto) 0 Sodium 137 Potassium 4.0 Chloride 103 Carbon Dioxide 26 BUN 24 H Creatinine 1.10 Estimated GFR > 60.0 BUN/Creatinine Ratio 21.8 Glucose 106 Calcium 8.8 Procalcitonin 22.54 H Stl C. cayetanensis PCR Stool Rotavirus (PCR) Stool Adenovirus (PCR) Stool Astrovirus (PCR) Stool Cryptosporidium PCR Stl E.coli Shiga Tox PCR St Sh/Enteroin Ecoli PCR Stool E coli O157 PCR Stl Enterotoxigenic E PCR Stool EPEC (PCR) Stl E. histolytica PCR Stool Giardia Lamblia PCR Stool Sapovirus (PCR) Stl P. shigelloides PCR St Y.enterocolitica PCR Stool Vibrio (PCR) Stl Vibrio cholerae PCR Stl Enteroaggr Ecoli PCR Stl Norovirus GI/GII PCR A. baumannii (PCR) Chlamy pneumoniae PCR Adenovirus (PCR) B.parapertussis DNA PCR Campylobacter (PCR) María albicans (PCR) C. glabrata (PCR) C. krusei (PCR) C. parapsilosis (PCR) C. tropicalis (PCR) C. difficile Tox (PCR) Coronavirus OC43 (PCR) Coronavirus HKU1 (PCR) Coronavirus 229E (PCR) Coronavirus NL63 (PCR) Enterobacteriac sp PCR E. cloacae complex PCR Enterococcus sp PCR E. coli (PCR) H. influenzae (PCR) Human Metapneumovir PCR Influenza Type A (PCR) Influenza Type B (PCR) Klebsiella oxytoca PCR Klebsiella pneumoniae List. monocytogenes PCR M. pneumoniae (PCR) N. meningitidis (PCR) Parainfluenza 1 (PCR) Parainfluenza 2 (PCR) Parainfluenza 3 (PCR) Parainfluenza 4 (PCR) Proteus species (PCR) RSV (PCR) Entero/Rhino (PCR) Salmonella (PCR) Serratia marcescens PCR Staphylococcus sp PCR Staph aureus (PCR) mecA-Methicil Res Gene Streptococcus sp PCR Group A Strep (PCR) Strep agalactiae (PCR) Strep pneumoniae (PCR) P. aeruginosa (PCR) Venancio/B-Vanco Res Genes KPC-Carbap Res Gene PCR Assessment & Plan (1) Sepsis: Problem details: Patient continues to have low-grade fevers and his white count is elevated today compared to yesterday. Continue to monitor. Patient was made inpatient status on 06/23/18. Qualifiers: Sepsis type: sepsis due to unspecified organism Qualified Code(s): A41.9 - Sepsis, unspecified organism Current visit: Yes Status: Acute (2) Acute UTI: Problem details: Continue IV ceftriaxone 2 g daily Current visit: Yes Status: Acute (3) Obstructive sleep apnea of adult: Problem details: Patient is using his own CPAP machine Current visit: No Status: Chronic Quality VTE Deep Vein Thrombosis/Pulmonary Embolism Present on Admission: No
--- NOTE | 2018-06-24 17:04 | PM.HP.1 ---
History of Present Illness Chief complaint: TEMP FOR 4 DAYS UP TO 102, SHAKING Patient History Medical History (Updated 06/24/18 @ 17:07 by YISSEL Tse) Primary insomnia (Inactive) Obstructive sleep apnea of adult (Chronic) Ankle fracture, right (Acute) Arthritis (Acute) Dysphagia (Acute) GERD (gastroesophageal reflux disease) (Acute) Global amnesia (Acute) HTN (hypertension) (Acute) Hypogonadism (Acute) Idiopathic neuropathy (Acute) Nephrolithiasis (Acute) Polycythemia (Acute) Surgical History (Updated 06/23/18 @ 20:41 by Shruthi Garduno DO) H/O lithotripsy (Acute) Status post ORIF of fracture of ankle (Acute) Total knee replacement status (Acute) Family History (Updated 06/23/18 @ 20:39 by Shruthi Garduno DO) Mother Parkinson disease Father Hypertension TIA (transient ischemic attack) Osteoarthritis Social History household members: spouse Smoking Status: Never smoker Family & Social History Social History: household members spouse Prior Living Arrangements House Safety & Behavioral: Feels Safe in Current Yes Environment Been Physically Hurt or No Threatened By a Person Suicidal Ideation Description None Suicide Plan Description No Plan Tobacco & Substance use: Smoking Status Never smoker alcohol intake frequency a few times a month Substance Use Type does not use Meds Home Medications Medication Instructions Recorded Confirmed Type aspirin 81 mg tablet,delayed 81 mg PO DAILY 06/17/18 06/23/18 History release lisinopril 10 mg tablet 10 mg PO DAILY 06/17/18 06/23/18 History testosterone cypionate 06/17/18 06/17/18 History Resprionics Dreamstation CPAP #1 ea 06/19/18 06/19/18 History amlodipine 5 mg tablet 5 mg PO DAILY 06/19/18 06/23/18 History nicotinamide Ribdside Chloride 250 mg PO DAILY 06/19/18 06/23/18 History nortriptyline 25 mg capsule 25 mg PO BID cap 06/19/18 06/23/18 History pantoprazole 40 mg tablet,delayed 40 mg PO DAILY 06/19/18 06/23/18 History release Feeomq-Aqbb-Dmhnlx-Fish Oil 1 cap PO DAILY 06/23/18 06/23/18 History Trimix 06/23/18 History Tumeric 500 mg PO DAILY 06/23/18 06/23/18 History acetaminophen [Tylenol Extra 1 tab PO PRN PRN 06/23/18 06/23/18 History Strength] cholecalciferol (vitamin D3) 2,000 unit PO DAILY 06/23/18 06/23/18 History [Vitamin D3] cyanocobalamin (vitamin B-12) 1,000 mcg IM QMONTH 06/23/18 06/23/18 History docosahexanoic acid [Algal [place]-3 1 tab PO DAILY 06/23/18 06/23/18 History DHA] potassium 10 meq PO 2XW 06/23/18 06/23/18 History Allergies Allergy/AdvReac Type Severity Reaction Status Date / Time EGGS Allergy Mild Uncoded 06/23/18 06:01 Exam Vital Signs (past 8 hours): - 06/24/18 13:00 06/24/18 15:40 06/24/18 15:43 Temperature 98.8 F 99.1 F Pulse Rate 93 H 91 H Respiratory Rate 16 16 Blood Pressure 132/75 135/82 Pulse Oximetry 97 97 97 Oxygen Delivery Method Room Air Oxygen Flow Rate 0 Objective Labs Result Diagrams: 06/24/18 05:16 06/24/18 05:16 Labs: Laboratory Results - last 24 hr 06/23/18 06/23/18 06/24/18 06:02 15:20 05:16 WBC 14.1 H RBC 5.28 Hgb 14.8 Hct 45.9 MCV 87.0 MCH 28.0 MCHC 32.1 RDW 14.8 Plt Count 161 Neut % (Auto) 78.3 H Lymph % (Auto) 7.9 L [place] % (Auto) 11.8 Eos % (Auto) 1.7 L Baso % (Auto) 0.3 Neut # (Auto) 29999 H Lymph # (Auto) 1100 [place] # (Auto) 1700 H Eos # (Auto) 200 Baso # (Auto) 0 Sodium Potassium Chloride Carbon Dioxide BUN Creatinine Estimated GFR BUN/Creatinine Ratio Glucose Calcium Procalcitonin A. baumannii (PCR) Not detected Chlamy pneumoniae PCR Not detected Adenovirus (PCR) Not detected B.parapertussis DNA PCR Not detected María albicans (PCR) Not detected C. glabrata (PCR) Not detected C. krusei (PCR) Not detected C. parapsilosis (PCR) Not detected C. tropicalis (PCR) Not detected Coronavirus OC43 (PCR) Not detected Coronavirus HKU1 (PCR) Not detected Coronavirus 229E (PCR) Not detected Coronavirus NL63 (PCR) Not detected Enterobacteriac sp PCR Detected H E. cloacae complex PCR Not detected Enterococcus sp PCR Not detected E. coli (PCR) Not detected H. influenzae (PCR) Not detected Human Metapneumovir PCR Not detected Influenza Type A (PCR) Not detected Influenza Type B (PCR) Not detected Klebsiella oxytoca PCR Detected H Klebsiella pneumoniae Not detected List. monocytogenes PCR Not detected M. pneumoniae (PCR) Not detected N. meningitidis (PCR) Not detected Parainfluenza 1 (PCR) Not detected Parainfluenza 2 (PCR) Not detected Parainfluenza 3 (PCR) Not detected Parainfluenza 4 (PCR) Not detected Proteus species (PCR) Not detected RSV (PCR) Not detected Entero/Rhino (PCR) Not detected Serratia marcescens PCR Not detected Staphylococcus sp PCR Not detected Staph aureus (PCR) Not detected mecA-Methicil Res Gene Not Reportable Streptococcus sp PCR Not detected Group A Strep (PCR) Not detected Strep agalactiae (PCR) Not detected Strep pneumoniae (PCR) Not detected P. aeruginosa (PCR) Not detected Venancio/B-Vanco Res Genes Not Reportable KPC-Carbap Res Gene PCR Not detected 06/24/18 06/24/18 05:16 05:16 WBC RBC Hgb Hct MCV MCH MCHC RDW Plt Count Neut % (Auto) Lymph % (Auto) [place] % (Auto) Eos % (Auto) Baso % (Auto) Neut # (Auto) Lymph # (Auto) [place] # (Auto) Eos # (Auto) Baso # (Auto) Sodium 137 Potassium 4.0 Chloride 103 Carbon Dioxide 26 BUN 24 H Creatinine 1.10 Estimated GFR > 60.0 BUN/Creatinine Ratio 21.8 Glucose 106 Calcium 8.8 Procalcitonin 22.54 H A. baumannii (PCR) Chlamy pneumoniae PCR Adenovirus (PCR) B.parapertussis DNA PCR María albicans (PCR) C. glabrata (PCR) C. krusei (PCR) C. parapsilosis (PCR) C. tropicalis (PCR) Coronavirus OC43 (PCR) Coronavirus HKU1 (PCR) Coronavirus 229E (PCR) Coronavirus NL63 (PCR) Enterobacteriac sp PCR E. cloacae complex PCR Enterococcus sp PCR E. coli (PCR) H. influenzae (PCR) Human Metapneumovir PCR Influenza Type A (PCR) Influenza Type B (PCR) Klebsiella oxytoca PCR Klebsiella pneumoniae List. monocytogenes PCR M. pneumoniae (PCR) N. meningitidis (PCR) Parainfluenza 1 (PCR) Parainfluenza 2 (PCR) Parainfluenza 3 (PCR) Parainfluenza 4 (PCR) Proteus species (PCR) RSV (PCR) Entero/Rhino (PCR) Serratia marcescens PCR Staphylococcus sp PCR Staph aureus (PCR) mecA-Methicil Res Gene Streptococcus sp PCR Group A Strep (PCR) Strep agalactiae (PCR) Strep pneumoniae (PCR) P. aeruginosa (PCR) Venancio/B-Vanco Res Genes KPC-Carbap Res Gene PCR Quality VTE Deep Vein Thrombosis/Pulmonary Embolism Present on Admission: No
[2018-06-24] MEDS: ACETAMINOPHEN 325 MG TABLET 650 MG PO ×2 (17:05→23:39)
--- NOTE | 2018-06-24 17:08 | P.HP_ITS ---
History of Present Illness Chief complaint: TEMP FOR 4 DAYS UP TO 102, SHAKING Patient History Medical History (Updated 06/24/18 @ 17:07 by YISSEL Tse) Primary insomnia (Inactive) Obstructive sleep apnea of adult (Chronic) Ankle fracture, right (Acute) Arthritis (Acute) Dysphagia (Acute) GERD (gastroesophageal reflux disease) (Acute) Global amnesia (Acute) HTN (hypertension) (Acute) Hypogonadism (Acute) Idiopathic neuropathy (Acute) Nephrolithiasis (Acute) Polycythemia (Acute) Surgical History (Updated 06/23/18 @ 20:41 by Shruthi Garduno DO) H/O lithotripsy (Acute) Status post ORIF of fracture of ankle (Acute) Total knee replacement status (Acute) Family History (Updated 06/23/18 @ 20:39 by Shruthi Garduno DO) Mother Parkinson disease Father Hypertension TIA (transient ischemic attack) Osteoarthritis Social History household members: spouse Smoking Status: Never smoker Family & Social History Social History: household members spouse Prior Living Arrangements House Safety & Behavioral: Feels Safe in Current Yes Environment Been Physically Hurt or No Threatened By a Person Suicidal Ideation Description None Suicide Plan Description No Plan Tobacco & Substance use: Smoking Status Never smoker alcohol intake frequency a few times a month Substance Use Type does not use Meds Home Medications Medication Instructions Recorded Confirmed Type aspirin 81 mg tablet,delayed 81 mg PO DAILY 06/17/18 06/23/18 History release lisinopril 10 mg tablet 10 mg PO DAILY 06/17/18 06/23/18 History testosterone cypionate 06/17/18 06/17/18 History Resprionics Dreamstation CPAP #1 ea 06/19/18 06/19/18 History amlodipine 5 mg tablet 5 mg PO DAILY 06/19/18 06/23/18 History nicotinamide Ribdside Chloride 250 mg PO DAILY 06/19/18 06/23/18 History nortriptyline 25 mg capsule 25 mg PO BID cap 06/19/18 06/23/18 History pantoprazole 40 mg tablet,delayed 40 mg PO DAILY 06/19/18 06/23/18 History release Vbvlqz-Lfds-Jqqxsd-Fish Oil 1 cap PO DAILY 06/23/18 06/23/18 History Trimix 06/23/18 History Tumeric 500 mg PO DAILY 06/23/18 06/23/18 History acetaminophen [Tylenol Extra 1 tab PO PRN PRN 06/23/18 06/23/18 History Strength] cholecalciferol (vitamin D3) 2,000 unit PO DAILY 06/23/18 06/23/18 History [Vitamin D3] cyanocobalamin (vitamin B-12) 1,000 mcg IM QMONTH 06/23/18 06/23/18 History docosahexanoic acid [Algal [place]-3 1 tab PO DAILY 06/23/18 06/23/18 History DHA] potassium 10 meq PO 2XW 06/23/18 06/23/18 History Allergies Allergy/AdvReac Type Severity Reaction Status Date / Time EGGS Allergy Mild Uncoded 06/23/18 06:01 Exam Vital Signs (past 8 hours): - 06/24/18 13:00 06/24/18 15:40 06/24/18 15:43 Temperature 98.8 F 99.1 F Pulse Rate 93 H 91 H Respiratory Rate 16 16 Blood Pressure 132/75 135/82 Pulse Oximetry 97 97 97 Oxygen Delivery Method Room Air Oxygen Flow Rate 0 Objective Labs Result Diagrams: 06/24/18 05:16 06/24/18 05:16 Labs: Laboratory Results - last 24 hr 06/23/18 06/23/18 06/24/18 06:02 15:20 05:16 WBC 14.1 H RBC 5.28 Hgb 14.8 Hct 45.9 MCV 87.0 MCH 28.0 MCHC 32.1 RDW 14.8 Plt Count 161 Neut % (Auto) 78.3 H Lymph % (Auto) 7.9 L [place] % (Auto) 11.8 Eos % (Auto) 1.7 L Baso % (Auto) 0.3 Neut # (Auto) 63281 H Lymph # (Auto) 1100 [place] # (Auto) 1700 H Eos # (Auto) 200 Baso # (Auto) 0 Sodium Potassium Chloride Carbon Dioxide BUN Creatinine Estimated GFR BUN/Creatinine Ratio Glucose Calcium Procalcitonin A. baumannii (PCR) Not detected Chlamy pneumoniae PCR Not detected Adenovirus (PCR) Not detected B.parapertussis DNA PCR Not detected María albicans (PCR) Not detected C. glabrata (PCR) Not detected C. krusei (PCR) Not detected C. parapsilosis (PCR) Not detected C. tropicalis (PCR) Not detected Coronavirus OC43 (PCR) Not detected Coronavirus HKU1 (PCR) Not detected Coronavirus 229E (PCR) Not detected Coronavirus NL63 (PCR) Not detected Enterobacteriac sp PCR Detected H E. cloacae complex PCR Not detected Enterococcus sp PCR Not detected E. coli (PCR) Not detected H. influenzae (PCR) Not detected Human Metapneumovir PCR Not detected Influenza Type A (PCR) Not detected Influenza Type B (PCR) Not detected Klebsiella oxytoca PCR Detected H Klebsiella pneumoniae Not detected List. monocytogenes PCR Not detected M. pneumoniae (PCR) Not detected N. meningitidis (PCR) Not detected Parainfluenza 1 (PCR) Not detected Parainfluenza 2 (PCR) Not detected Parainfluenza 3 (PCR) Not detected Parainfluenza 4 (PCR) Not detected Proteus species (PCR) Not detected RSV (PCR) Not detected Entero/Rhino (PCR) Not detected Serratia marcescens PCR Not detected Staphylococcus sp PCR Not detected Staph aureus (PCR) Not detected mecA-Methicil Res Gene Not Reportable Streptococcus sp PCR Not detected Group A Strep (PCR) Not detected Strep agalactiae (PCR) Not detected Strep pneumoniae (PCR) Not detected P. aeruginosa (PCR) Not detected Venancio/B-Vanco Res Genes Not Reportable KPC-Carbap Res Gene PCR Not detected 06/24/18 06/24/18 05:16 05:16 WBC RBC Hgb Hct MCV MCH MCHC RDW Plt Count Neut % (Auto) Lymph % (Auto) [place] % (Auto) Eos % (Auto) Baso % (Auto) Neut # (Auto) Lymph # (Auto) [place] # (Auto) Eos # (Auto) Baso # (Auto) Sodium 137 Potassium 4.0 Chloride 103 Carbon Dioxide 26 BUN 24 H Creatinine 1.10 Estimated GFR > 60.0 BUN/Creatinine Ratio 21.8 Glucose 106 Calcium 8.8 Procalcitonin 22.54 H A. baumannii (PCR) Chlamy pneumoniae PCR Adenovirus (PCR) B.parapertussis DNA PCR María albicans (PCR) C. glabrata (PCR) C. krusei (PCR) C. parapsilosis (PCR) C. tropicalis (PCR) Coronavirus OC43 (PCR) Coronavirus HKU1 (PCR) Coronavirus 229E (PCR) Coronavirus NL63 (PCR) Enterobacteriac sp PCR E. cloacae complex PCR Enterococcus sp PCR E. coli (PCR) H. influenzae (PCR) Human Metapneumovir PCR Influenza Type A (PCR) Influenza Type B (PCR) Klebsiella oxytoca PCR Klebsiella pneumoniae List. monocytogenes PCR M. pneumoniae (PCR) N. meningitidis (PCR) Parainfluenza 1 (PCR) Parainfluenza 2 (PCR) Parainfluenza 3 (PCR) Parainfluenza 4 (PCR) Proteus species (PCR) RSV (PCR) Entero/Rhino (PCR) Serratia marcescens PCR Staphylococcus sp PCR Staph aureus (PCR) mecA-Methicil Res Gene Streptococcus sp PCR Group A Strep (PCR) Strep agalactiae (PCR) Strep pneumoniae (PCR) P. aeruginosa (PCR) Venancio/B-Vanco Res Genes KPC-Carbap Res Gene PCR Quality VTE Deep Vein Thrombosis/Pulmonary Embolism Present on Admission: No
[2018-06-25] VITALS (10 sets, daily range): BP systolic 112–143; BP diastolic 68–86; PULSE 76–97; RESP 16–20; TEMP 36.5–38.1; O2SAT 94–98
[2018-06-25] MEDS: levoFLOXacin 750 MG/150 ML PIGGYBACK 100 MG IV ×2 (00:20→22:49)
[2018-06-25] MEDS: SODIUM CHLORIDE 0.9% FLUSH 10 ML IV ×4 (00:21→20:53)
[2018-06-25] MEDS: CEFTRIAXONE 2 GM/50 ML FROZ.PIGGY IV (06:46)
[2018-06-25 07:48] LABS: Add Manual Diff / Slide Review NO; Basophils Absolute Auto 0 /uL (0-100); Basophils Percent Auto 0.3 % (0-2); Eosinophils Absolute Auto 200 /uL (0-450); Eosinophils Percent Auto 1.5 % (2-4); Hematocrit 44.1 % (41-53); Hemoglobin 14.7 g/dL (13.5-17.5); Lymphocytes Absolute Auto 700 /uL (1100-4500); Lymphocytes Percent Auto 7.1 % (25-40); Mean Corpuscular HGB Conc 33.4 % (30-36); Mean Corpuscular Hemoglobin 28.3 PG (26-34); Mean Corpuscular Volume 84.6 fL (80-100); Monocytes Absolute Auto 1500 /uL (0-900); Monocytes Percent Auto 14.4 % (3-14); Neutrophils Absolute Auto 7800 /uL (1500-7000); Neutrophils Percent Auto 76.7 % (50-75); Platelet Count 171 X10^3/uL (150-400); Red Blood Cell Count 5.21 X10^6/uL (4.5-5.9); Red Cell Distribution Width 14.9 % (11.6-14.8); White Blood Cell Count 10.2 X10^3/uL (4.5-11.0)
[2018-06-25] MEDS: LACTOBACILLUS ACIDOPHILUS TABLET 1 EACH PO ×2 (08:59→16:10)
[2018-06-25] MEDS: ASPIRIN EC 81 MG TABLET PO (08:59)
[2018-06-25] MEDS: HEPARIN 5,000 UNIT/ML VIAL 5000 UNIT SUBCUT ×2 (09:00→20:53)
[2018-06-25] MEDS: PANTOPRAZOLE 40 MG TABLET PO (09:00)
[2018-06-25] MEDS: NORTRIPTYLINE HCL 25 MG CAPSULE PO ×2 (09:00→20:53)
[2018-06-25] MEDS: DOCUSATE 100 MG CAPSULE PO (09:09)
--- NOTE | 2018-06-25 11:23 | PM.PN.1 ---
Subjective Date Patient Seen: 06/25/18 Time Patient Seen: 10:00 Interval history: Patient states he is feeling much better. Per nursing he spiked a fever of 102 last night and review of the chart indicated that he had IV Levaquin added to his antibiotic regimen. He states that after receiving that antibiotic his urine flow appeared to be restored back to what it normally has been in terms of volume and stream. Up until that point he had felt like he was having urinary retention problems which he informed me about yesterday. Patient states that he has an orthopedic appointment for the left knee replacement surgery with Dr. Soares in [place] on June 27. He states that his orthopedist was very concerned about the potential for infection in his joint, and would like to have all lab results upon discharge. Exam Vital Signs (past 8 hours): - 06/25/18 05:06 06/25/18 07:00 06/25/18 08:00 Temperature 97.7 F 98.7 F Pulse Rate 76 86 Respiratory Rate 16 20 Blood Pressure 123/79 112/68 Pulse Oximetry 97 96 98 Oxygen Delivery Method Room Air Oxygen Flow Rate 0 Narrative Exam Narrative: General: Alert and oriented well-developed 72-year-old male, no distress HEENT: Head is normocephalic, , oral and nasal mucosa are pink and moist Eyes: sclera nonicteric Neck: Supple, no JVD Respirations: Lung sounds are clear to auscultation bilaterally no wheezes or rhonchi CV: Regular rate and rhythm, normal S1 and S2, no murmurs Abdomen: Obese, nontender with normoactive bowel tones Skin: No lesions or rashes noted. Well-healing surgical scar of the left knee Neuro: Alert and oriented x4 with no focal deficits Extremities: Patient is status post approximately 1 month left knee replacement. Left knee is mildly swollen with a vertical scar extending over the knee which is intact, clean, and dry. Patient is currently icing his knee. Psych: Normal mood and affect. Objective Labs Result Diagrams: 06/25/18 07:16 06/24/18 05:16 Labs: Laboratory Results - last 24 hr 06/25/18 06/25/18 07:16 07:16 WBC 10.2 RBC 5.21 Hgb 14.7 Hct 44.1 MCV 84.6 MCH 28.3 MCHC 33.4 RDW 14.9 H Plt Count 171 Neut % (Auto) 76.7 H Lymph % (Auto) 7.1 L [place] % (Auto) 14.4 H Eos % (Auto) 1.5 L Baso % (Auto) 0.3 Neut # (Auto) 7800 H Lymph # (Auto) 700 L [place] # (Auto) 1500 H Eos # (Auto) 200 Baso # (Auto) 0 Procalcitonin 9.60 H Assessment & Plan (1) Obstructive sleep apnea of adult: Problem details: Patient is using his own CPAP machine. Current visit: No Status: Chronic (2) Status post left knee replacement: Problem details: Patient is being treated symptomatically for any knee swelling. Continue to monitor for potential infection. Current visit: Yes Status: Acute (3) Klebsiella sepsis: Problem details: In blood. Covered w/IV levaquin Current visit: Yes Status: Acute (4) Enterococcus UTI: Problem details: In urine. Continue IV ceftriaxone 2 g daily, urine and blood culture sensitivities were made available last night and IV Levaquin was added to his antibiotic regimen. Current visit: Yes Status: Acute Quality VTE Deep Vein Thrombosis/Pulmonary Embolism Present on Admission: No
--- NOTE | 2018-06-25 11:30 | P.PN_ITS ---
Subjective Date Patient Seen: 06/25/18 Time Patient Seen: 10:00 Interval history: Patient states he is feeling much better. Per nursing he spiked a fever of 102 last night and review of the chart indicated that he had IV Levaquin added to his antibiotic regimen. He states that after receiving that antibiotic his urine flow appeared to be restored back to what it normally has been in terms of volume and stream. Up until that point he had felt like he was having urinary retention problems which he informed me about yesterday. Patient states that he has an orthopedic appointment for the left knee replacement surgery with Dr. Soares in [place] on June 27. He states that his orthopedist was very concerned about the potential for infection in his joint, and would like to have all lab results upon discharge. Exam Vital Signs (past 8 hours): - 06/25/18 05:06 06/25/18 07:00 06/25/18 08:00 Temperature 97.7 F 98.7 F Pulse Rate 76 86 Respiratory Rate 16 20 Blood Pressure 123/79 112/68 Pulse Oximetry 97 96 98 Oxygen Delivery Method Room Air Oxygen Flow Rate 0 Narrative Exam Narrative: General: Alert and oriented well-developed 72-year-old male, no distress HEENT: Head is normocephalic, , oral and nasal mucosa are pink and moist Eyes: sclera nonicteric Neck: Supple, no JVD Respirations: Lung sounds are clear to auscultation bilaterally no wheezes or rhonchi CV: Regular rate and rhythm, normal S1 and S2, no murmurs Abdomen: Obese, nontender with normoactive bowel tones Skin: No lesions or rashes noted. Well-healing surgical scar of the left knee Neuro: Alert and oriented x4 with no focal deficits Extremities: Patient is status post approximately 1 month left knee replacement. Left knee is mildly swollen with a vertical scar extending over th e knee which is intact, clean, and dry. Patient is currently icing his knee. Psych: Normal mood and affect. Objective Labs Result Diagrams: 06/25/18 07:16 06/24/18 05:16 Labs: Laboratory Results - last 24 hr 06/25/18 06/25/18 07:16 07:16 WBC 10.2 RBC 5.21 Hgb 14.7 Hct 44.1 MCV 84.6 MCH 28.3 MCHC 33.4 RDW 14.9 H Plt Count 171 Neut % (Auto) 76.7 H Lymph % (Auto) 7.1 L [place] % (Auto) 14.4 H Eos % (Auto) 1.5 L Baso % (Auto) 0.3 Neut # (Auto) 7800 H Lymph # (Auto) 700 L [place] # (Auto) 1500 H Eos # (Auto) 200 Baso # (Auto) 0 Procalcitonin 9.60 H Assessment & Plan (1) Obstructive sleep apnea of adult: Problem details: Patient is using his own CPAP machine. Current visit: No Status: Chronic (2) Status post left knee replacement: Problem details: Patient is being treated symptomatically for any knee swelling. Continue to monitor for potential infection. Current visit: Yes Status: Acute (3) Klebsiella sepsis: Problem details: In blood. Covered w/IV levaquin Current visit: Yes Status: Acute (4) Enterococcus UTI: Problem details: In urine. Continue IV ceftriaxone 2 g daily, urine and blood culture sensitiv ities were made available last night and IV Levaquin was added to his antibiotic regimen. Current visit: Yes Status: Acute Quality VTE Deep Vein Thrombosis/Pulmonary Embolism Present on Admission: No
--- NOTE | 2018-06-25 15:46 | CM.DPC ---
DCP continued: case discussed in Team Rounds and EMR is now reviewed. Met with pt as planned. PT confirms that he has an appt June [address] surgeon [address] Webster in [place]. He says he has been pleased that the hospitalist team has been coordinating his care with Dr. Webster who wants to see pt to make sure his infection is not involving his recent (7 week old) TKA. He wants to make sure he can take his clinical record copies with him to this appt and assured him that he should be able to sign a release of records and have the RN coordinator facilitate this. Pt expresses his concern and anxiety re this infection and how ill it has made him feel. He says he feels much better since the second antibiotic was started. He relays that his Demetra is very supportive and would be driving him to the [place] appt. P: follow for advocacy and prn d/c planning needs. '
[2018-06-25] MEDS: ACETAMINOPHEN 325 MG TABLET 650 MG PO (20:58)
--- NOTE | 2018-06-25 21:36 | PC.NURSE ---
Pt spiked a temp 100.5, medicated with tylenol. L.knee slightly edematous, placed cold wash cloth over it. call light in reach.
[2018-06-26 00:10] VITALS: O2SAT 95
[2018-06-26] MEDS: SODIUM CHLORIDE 0.9% FLUSH 10 ML IV ×2 (02:01→09:03)
[2018-06-26 05:05] VITALS: BP 141/82; PULSE 78; RESP 18; TEMP 37; O2SAT 99
--- NOTE | 2018-06-26 05:21 | PM.DS.1 ---
History of Present Illness Chief complaint: TEMP FOR 4 DAYS UP TO 102, SHAKING Narrative: Written by myself Dr. 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 The patient reports that he has had severe chills and shaking which prompted him to come in. He has had a fever persistently for the last 1 week. He reports 1-2 days of loose stool last week. He reports his appetite has been poor. He denies upper respiratory symptoms including cough, congestion, rhinitis, sore throat, nausea or vomiting. He also denies abdominal pain. he does endorse chronic urinary urgency with mild incontinence that has been increasing over the last week. He also has had increased frequency of urination and decreased urine output. He has no other complaints. Of note, his recently had C. difficile colitis. In chest x-ray was negative for acute cardiopulmonary process. Blood cultures x2 and urine culture pending. Urinalysis appears grossly infected. WBC normal at 10.8 with 94% PMNs. He was admitted for further evaluation and treatment of UTI. Discharge Providers Date of admission: 06/23/18 07:17 Discharge Date: 06/26/18 Primary care physician: Leroy Sandoval MD Discharge provider: Shruthi Garduno DO Summary Discharge Diagnosis: 1. Acute klebsiella and enterococcus bacteremia secondary pyelonephritis, present on admission. Resolving. 2. Acute EPEC gastroenteritis, present on admission. Resolved. 3. Previous diagnosis of chronic kidney disease stage 3. Not present on admission. Resolved. 4. Hypertension, chronic, present on admission. Stable 5. Idiopathic peripheral neuropathy, chronic, present on admission. Stable. 6. GERD with dysphagia, chronic, present on admission. Stable. 7. Recent left knee total arthroplasty, present on admission. Stable. Hospital Course: Venancio Austin is a 72-year-old male with past medical history significant for hypertension, nephrolithiasis (asymptomatic of kidney stones) status post lithotripsy, CKD stage 3, GERD with dysphagia and delayed esophageal motility, and recent left total knee replacement on 04/27/2018 who presented for rigors and fever. 1. Acute klebsiella and enterococcus bacteremia secondary pyelonephritis, present on admission. Resolving. -Initially thought to be an acute urinary tract infection but after culture results demonstrative of bacteremia this is actually risk control field representative of acute pyelonephritis. -Patient had increased urgency from baseline, increased frequency, and decreased urine output with fever (103) and rigors. -Urine culture positive for enterococcus and gram negative bacilli. Blood cultutres positive for klebsiella. -Continued ceftriaxone 2 g daily and switched to levofloxacin 750 mg IV daily once cultures resulted. Due to this being an uncomplicated case of bacteremia, Infectious Disease guidelines now recommend 7 days of antibiotic course total. -Ordered KUB to assess nephrolithiasis as nidus for infection which was negative. -Continued normal saline at 100 mL/hr until adequately hydrated. Received 3 L NS bolus in ED. 2. Acute EPEC gastroenteritis, present on admission. Resolved. -Patient reports loose stools last week for several days, as well as, decreased appetite and p.o. intake. -GI PCR positive for EPEC. -Continued ceftriaxone then switched to levofloxacin as above. Discussed case with Dr. Delarosa of Infectious Disease, who recommends ceftriaxone 2 g daily unless urine growing enterococcus will need to be switched to fluoroquinolone or Bactrim. May treat infectious diarrhea with antibiotics but usually self-limited. Only unable to use antibiotics which Shigella toxin producing infectious diarrhea. 3. Previous diagnosis of chronic kidney disease stage 3. Not present on admission. Resolved. -Initial creatinine 1.2 and trended down to 1.10. with eGFR > 60.0. The patient does not have CKD stage 3. -Continued IV fluid hydration until adequately hydrated as above. 4. Hypertension, chronic, present on admission. Stable. -Held amlodipine 5 mg daily and lisinopril 10 mg daily initially as blood pressure was low normal. Restarted and continued at time of discharge. 5. Idiopathic peripheral neuropathy, chronic, present on admission. Stable. -Continued nortriptyline 25 mg twice daily. 6. GERD with dysphagia, chronic, present on admission. Stable. -Patient reports decreased esophageal motility with dysphagia secondary to GERD and only treatable with PPI?? -Continued pantoprazole 40 mg daily. 7. Recent left knee total arthroplasty, present on admission. Stable. -Patient recently had knee replaced [address] Soares in [place]. -Concern for infection with bactremia and monitored closely. No obvious signs of infection. Patient to follow up with orthopedic physician, Dr. Soares, who performed his TKA tomorrow outpatient. Status at Discharge Functional status at discharge: independent ambulation Overall status at discharge: patient is back to baseline Exam Vital Signs (past 8 hours): - 06/25/18 22:49 06/25/18 23:40 06/26/18 00:10 Temperature 98.1 F 99.4 F Pulse Rate 90 Respiratory Rate 16 Blood Pressure 143/86 H Pulse Oximetry 94 95 06/26/18 05:05 Temperature 98.6 F Pulse Rate 78 Respiratory Rate 18 Blood Pressure 141/82 H Pulse Oximetry 99 Oxygen Delivery Method Room Air Oxygen Flow Rate 0 Narrative Exam Narrative: General: Elderly gentleman sitting in bed and in no acute distress, well-developed, well-nourished, appropriately interactive. HEENT: Normocephalic, atraumatic. External ears without defect. Pupils equal, round, and reactive to light. Anicteric sclerae, moist conjunctivae, and no lid lag. Neck: Supple with full range of motion. No lymphadenopathy or thyromegaly. Cardiovascular: Regular rate and rhythm without murmurs, rubs, or gallops appreciated. Pulmonary: Clear to auscultation bilaterally without crackles, wheezes, or rhonchi. Normal respiratory effort with no use of accessory muscles. Abdomen: Soft, bowel sounds present, non-tender, non-distended. No suprapubic tenderness or flank pain. No hepatosplenomegaly or masses appreciated. Extremities: No clubbing, cyanosis, or edema. Large vertical scar over left knee healed well, no exudate, edema, erythema, or effusion. Skin: Normal temperature, turgor, and texture; no rash, ulcers, or subcutaneous nodules appreciated. Neurological: Cranial nerves grossly intact. Psychiatric: Normal mood and affect. Alert and oriented to person, place, and time. Objective Labs Result Diagrams: 06/26/18 06:40 06/24/18 05:16 Labs: Laboratory Results - last 24 hr 06/25/18 06/25/18 07:16 07:16 WBC 10.2 RBC 5.21 Hgb 14.7 Hct 44.1 MCV 84.6 MCH 28.3 MCHC 33.4 RDW 14.9 H Plt Count 171 Neut % (Auto) 76.7 H Lymph % (Auto) 7.1 L [place] % (Auto) 14.4 H Eos % (Auto) 1.5 L Baso % (Auto) 0.3 Neut # (Auto) 7800 H Lymph # (Auto) 700 L [place] # (Auto) 1500 H Eos # (Auto) 200 Baso # (Auto) 0 Procalcitonin 9.60 H Discharge Plan Discharge Plan Patient Disposition: Home Discharge comment: You are being discharged home. Please follow-up with your orthopedic physician, Dr. Soares, at your scheduled appointment tomorrow 06/27/2018. You are being discharged on levofloxacin 750 mg daily to finish a 7 day course (5 more days total). You may continue to have fevers and chills for the next 1-2 weeks that they should become less frequent and will slowly dissipate. If you fevers persist and/or become more frequent or your knee begins to swell, get red or become more painful than usual please see a medical professional immediately. You may take Tylenol as directed on bottle and as needed for fevers. Please follow-up with your PCP, Dr. Sandoval, in the next 1 week regarding your hospitalization. I would also recommend following up with your urologist in the near future. Discharge Med Rec/Prescriptions Prescriptions: New levofloxacin 750 mg tablet 750 mg PO DAILY Qty: 5 RF: 0 Continued acetaminophen [Tylenol Extra Strength] 500 mg Tablet 1 tab PO PRN PRN (Reason: Fever) RF: 0 potassium 99 mg Tablet 10 meq PO 2XW RF: 0 cyanocobalamin (vitamin B-12) 1,000 mcg/mL Solution 1,000 mcg IM QMONTH RF: 0 Algal [place]-3 DHA 200 mg Capsule 1 tab PO DAILY RF: 0 cholecalciferol (vitamin D3) [Vitamin D3] 2,000 unit Capsule 2,000 unit PO DAILY RF: 0 Tumeric 500 mg PO DAILY RF: 0 [place]-Kelc-Ajlspa-Fish Oil 1 cap PO DAILY RF: 0 Trimix RF: 0 aspirin [Adult Low Dose Aspirin] 81 mg tablet,delayed release (DR/EC) 81 mg PO DAILY RF: 0 lisinopril 10 mg tablet 10 mg PO DAILY RF: 0 nortriptyline 25 mg capsule 25 mg PO BID RF: 0 amlodipine 5 mg tablet 5 mg PO DAILY RF: 0 pantoprazole 40 mg tablet,delayed release (DR/EC) 40 mg PO DAILY RF: 0 nicotinamide Ribdside Chloride 250 mg PO DAILY RF: 0 Resprionics Dreamstation CPAP Qty: 1 RF: 0 No Action testosterone cypionate RF: 0 Follow up/Referrals: Leroy Sandoval MD [Primary Care Provider] - 1 Week (appt:07/03 @ 1:15 check in for appointment with christen hernandez [phone] ) Provider Discharge Instructions Diet: Low-fat, Low-sodium and Low-cholesterol Activity: Activity as tolerated and with continued outpatient physical therapy Visit Report/Discharge Packet Instructions: DI for Kidney Infection, Levofloxacin (By mouth) Discharge Data Primary Care Provider: Leroy Sandoval Attending Provider: Leroy Sandoval Admit Date/Time: 06/23/18 07:17 Quality VTE Deep Vein Thrombosis/Pulmonary Embolism Present on Admission: No
--- NOTE | 2018-06-26 05:29 | P.DS_ITS ---
History of Present Illness Chief complaint: TEMP FOR 4 DAYS UP TO 102, SHAKING Narrative: Written by myself Dr. 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 The patient reports that he has had severe chills and shaking which prompted him to come in. He has had a fever persistently for the last 1 week. He reports 1-2 days of loose stool last week. He reports his appetite has been poor. He denies upper respiratory symptoms including cough, congestion, rhinitis, sore throat, nausea or vomiting. He also denies abdominal pain. he d oes endorse chronic urinary urgency with mild incontinence that has been increasing over the last week. He also has had increased frequency of urination and decreased urine output. He has no other complaints. Of note, his recently had C. difficile colitis. In chest x-ray was negative for acute cardiopulmonary process. Blood cultures x2 and urine culture pending. Urinalysis appears grossly infected. WBC normal at 10.8 with 94% PMNs. He was admitted for further evaluation and treatment of UTI. Discharge Providers Date of admission: 06/23/18 07:17 Discharge Date: 06/26/18 Primary care physician: Leroy Sandoval MD Discharge provider: Shruthi Garduno DO Summary Discharge Diagnosis: 1. Acute klebsiella and enterococcus bacteremia secondary pyelonephritis, present on admission. Resolving. 2. Acute EPEC gastroenteritis, present on admission. Resolved. 3. Previous diagnosis of chronic kidney disease stage 3. Not present on admission. Resolved. 4. Hypertension, chronic, present on admission. Stable 5. Idiopathic peripheral neuropathy, chronic, present on admission. Stable. 6. GERD with dysphagia, chronic, present on admission. Stable. 7. Recent left knee total arthroplasty, present on admission. Stable. Hospital Course: Venancio Austin is a 72-year-old male with past medical history significant for hypertension, nephrolithiasis (asymptomatic of kidney stones) status post lithotripsy, CKD stage 3, GERD with dysphagia and delayed esophageal motility, and recent left total knee replacement on 04/27/2018 who presented for rigors and fever. 1. Acute klebsiella and enterococcus bacteremia secondary pyelonephritis, present on admission. Resolving. 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 -Patient had increased urgency from baseline, increased frequency, and decreased urine output with fever (103) and rigors. -Urine culture positive for enterococcus and gram negative bacilli. Blood cultutres positive for klebsiella. -Continued ceftriaxone 2 g daily and switched to levofloxacin 750 mg IV daily once cultures resulted. Due to this being an uncomplicated case of bacteremia, Infectious Disease guidelines now recommend 7 days of antibiotic course total. -Ordered KUB to assess nephrolithiasis as nidus for infection which was negative. -Continued normal saline at 100 mL/hr until adequately hydrated. Received 3 L NS bolus in ED. 2. Acute EPEC gastroenteritis, present on admission. Resolved. -Patient reports loose stools last week for several days, as well as, decreased appetite and p.o. intake. -GI PCR positive for EPEC. -Continued ceftriaxone then switched to levofloxacin as above. Discussed case with Dr. Delarosa of Infectious Disease, who recommends ceftriaxone 2 g daily unless urine growing enterococcus will need to be switched to fluoroquinolone or Bactrim. May treat infectious diarrhea with antibiotics but usually self- limited. Only unable to use antibiotics which Shigella toxin producing infectious diarrhea. 3. Previous diagnosis of chronic kidney disease stage 3. Not present on admission. Resolved. -Initial creatinine 1.2 and trended down to 1.10. with eGFR > 60.0. The patient does not have CKD stage 3. -Continued IV fluid hydration until adequately hydrated as above. 4. Hypertension, chronic, present on admission. Stable. -Held amlodipine 5 mg daily and lisinopril 10 mg daily initially as blood pressure was low normal. Restarted and continued at time of discharge. 5. Idiopathic peripheral neuropathy, chronic, present on admission. Stable. -Continued nortriptyline 25 mg twice daily. 6. GERD with dysphagia, chronic, present on admission. Stable. -Patient reports decreased esophageal motility with dysphagia secondary to GERD and only treatable with PPI?? -Continued pantoprazole 40 mg daily. 7. Recent left knee total arthroplasty, present on admission. Stable. -Patient recently had knee replaced [address] Soares in [place]. -Concern for infection with bactremia and monitored closely. No obvious signs of infection. Patient to follow up with orthopedic physician, Dr. Soares, who performed his TKA tomorrow outpatient. Status at Discharge Functional status at discharge: independent ambulation Overall status at discharge: patient is back to baseline Exam Vital Signs (past 8 hours): - 06/25/18 22:49 06/25/18 23:40 06/26/18 00:10 Temperature 98.1 F 99.4 F Pulse Rate 90 Respiratory Rate 16 Blood Pressure 143/86 H Pulse Oximetry 94 95 06/26/18 05:05 Temperature 98.6 F Pulse Rate 78 Respiratory Rate 18 Blood Pressure 141/82 H Pulse Oximetry 99 Oxygen Delivery Method Room Air Oxygen Flow Rate 0 Narrative Exam Narrative: General: Elderly gentleman sitting in bed and in no acute distress, well- developed, well-nourished, appropriately interactive. HEENT: Normocephalic, atraumatic. External ears without defect. Pupils equal, round, and reactive to light. Anicteric sclerae, moist conjunctivae, and no lid lag. Neck: Supple with full range of motion. No lymphadenopathy or thyromegaly. Cardiovascular: Regular rate and rhythm without murmurs, rubs, or gallops appreciated. Pulmonary: Clear to auscultation bilaterally without crackles, wheezes, or rhonchi. Normal respiratory effort with no use of accessory muscles. Abdomen: Soft, bowel sounds present, non-tender, non-distended. No suprapubic tenderness or flank pain. No hepatosplenomegaly or masses appreciated. Extremities: No clubbing, cyanosis, or edema. Large vertical scar over left knee healed well, no exudate, edema, erythema, or effusion. Skin: Normal temperature, turgor, and texture; no rash, ulcers, or subcutaneous nodules appreciated. Neurological: Cranial nerves grossly intact. Psychiatric: Normal mood and affect. Alert and oriented to person, place, and time. Objective Labs Result Diagrams: 06/26/18 06:40 06/24/18 05:16 Labs: Laboratory Results - last 24 hr 06/25/18 06/25/18 07:16 07:16 WBC 10.2 RBC 5.21 Hgb 14.7 Hct 44.1 MCV 84.6 MCH 28.3 MCHC 33.4 RDW 14.9 H Plt Count 171 Neut % (Auto) 76.7 H Lymph % (Auto) 7.1 L [place] % (Auto) 14.4 H Eos % (Auto) 1.5 L Baso % (Auto) 0.3 Neut # (Auto) 7800 H Lymph # (Auto) 700 L [place] # (Auto) 1500 H Eos # (Auto) 200 Baso # (Auto) 0 Procalcitonin 9.60 H Discharge Plan Discharge Plan Patient Disposition: Home Discharge comment: You are being discharged home. Please follow-up with your orthopedic physician, Dr. Soares, at your scheduled appointment tomorrow 06/27/2018. You are being discharged on levofloxacin 750 mg daily to finish a 7 day course (5 more days total). You may continue to have fevers and chills for the next 1-2 weeks that they should become less frequent and will slowly dissipate. If you fevers persist and/or become more frequent or your knee begins to swell, get red or become more painful than usual please see a medical professional immediately. You may take Tylenol as directed on bottle and as needed for fevers. Please follow-up with your PCP, Dr. Sandoval, in the next 1 week regarding your hospitalization. I would also recommend following up with your urologist in the near future. Discharge Med Rec/Prescriptions Prescriptions: New levofloxacin 750 mg tablet 750 mg PO DAILY Qty: 5 RF: 0 Continued acetaminophen [Tylenol Extra Strength] 500 mg Tablet 1 tab PO PRN PRN (Reason: Fever) RF: 0 potassium 99 mg Tablet 10 meq PO 2XW RF: 0 cyanocobalamin (vitamin B-12) 1,000 mcg/mL Solution 1,000 mcg IM QMONTH RF: 0 Algal [place]-3 DHA 200 mg Capsule 1 tab PO DAILY RF: 0 cholecalciferol (vitamin D3) [Vitamin D3] 2,000 unit Capsule 2,000 unit PO DAILY RF: 0 Tumeric 500 mg PO DAILY RF: 0 Gmqpwx-Vvkp-Lzpuuc-Fish Oil 1 cap PO DAILY RF: 0 Trimix RF: 0 aspirin [Adult Low Dose Aspirin] 81 mg tablet,delayed release (DR/EC) 81 mg PO DAILY RF: 0 lisinopril 10 mg tablet 10 mg PO DAILY RF: 0 nortriptyline 25 mg capsule 25 mg PO BID RF: 0 amlodipine 5 mg tablet 5 mg PO DAILY RF: 0 pantoprazole 40 mg tablet,delayed release (DR/EC) 40 mg PO DAILY RF: 0 nicotinamide Ribdside Chloride 250 mg PO DAILY RF: 0 Resprionics Dreamstation CPAP Qty: 1 RF: 0 No Action testosterone cypionate RF: 0 Follow up/Referrals: Leroy Sandoval MD [Primary Care Provider] - 1 Week (appt:07/03 @ 1:15 check in for appointment with christen hernandez [phone] ) Provider Discharge Instructions Diet: Low-fat, Low-sodium and Low-cholesterol Activity: Activity as tolerated and with continued outpatient physical therapy Visit Report/Discharge Packet Instructions: DI for Kidney Infection, Levofloxacin (By mouth) Discharge Data Primary Care Provider: Leroy Sandoval Attending Provider: Leroy Sandoval Admit Date/Time: 06/23/18 07:17 Quality VTE Deep Vein Thrombosis/Pulmonary Embolism Present on Admission: No
[2018-06-26 06:58] LABS: Add Manual Diff / Slide Review NO; Basophils Absolute Auto 0 /uL (0-100); Basophils Percent Auto 0.5 % (0-2); Eosinophils Absolute Auto 100 /uL (0-450); Eosinophils Percent Auto 1.7 % (2-4); Hematocrit 47.8 % (41-53); Lymphocytes Absolute Auto 1000 /uL (1100-4500); Lymphocytes Percent Auto 11.3 % (25-40); Mean Corpuscular HGB Conc 33.6 % (30-36); Mean Corpuscular Hemoglobin 28.6 PG (26-34); Mean Corpuscular Volume 85.2 fL (80-100); Monocytes Absolute Auto 1500 /uL (0-900); Monocytes Percent Auto 17.6 % (3-14); Neutrophils Absolute Auto 5900 /uL (1500-7000); Neutrophils Percent Auto 68.9 % (50-75); Platelet Count 204 X10^3/uL (150-400); Red Blood Cell Count 5.61 X10^6/uL (4.5-5.9); Red Cell Distribution Width 14.9 % (11.6-14.8); White Blood Cell Count 8.6 X10^3/uL (4.5-11.0)
[2018-06-26 07:22] LABS: Procalcitonin 5.64 ng/mL (<0.5)
[2018-06-26 08:20] VITALS: BP 126/83; PULSE 88; RESP 20; TEMP 36.6; O2SAT 95
[2018-06-26] MEDS: ASPIRIN EC 81 MG TABLET PO (09:03)
[2018-06-26] MEDS: AMLODIPINE 5 MG TABLET PO (09:03)
[2018-06-26 09:04] VITALS: BP 126/83
[2018-06-26] MEDS: LISINOPRIL 10 MG TABLET PO (09:04)
[2018-06-26] MEDS: NORTRIPTYLINE HCL 25 MG CAPSULE PO (09:04)
[2018-06-26] MEDS: LACTOBACILLUS ACIDOPHILUS TABLET 1 EACH PO (09:04)
[2018-06-26] MEDS: HEPARIN 5,000 UNIT/ML VIAL 5000 UNIT SUBCUT (09:04)
[2018-06-26] MEDS: PANTOPRAZOLE 40 MG TABLET PO (09:04)
[2018-06-26 09:15] VITALS: O2SAT 95
[2018-06-26 11:58] LABS: Blood Urea Nitrogen 16 mg/dL (9-20); Carbon Dioxide 24 mmol/L (22-32); Chloride 101 mmol/L (98-107); Estimated Glomerular Filt Rate > 60.0 mL/min (>60); Glucose 98 mg/dL (80-110); HEMOLYSIS < 15 (0-50); Potassium 3.9 mmol/L (3.4-5.1); Sodium 136 mmol/L (137-145)
--- NOTE | 2018-06-26 13:18 | PC.NURSE ---
Pt ready for discharge home with Spouse. Went over d/c instructions, discussed d/c med and time of last dose. Reviewed stroke education, follow up, and signs and symptoms of stroke. Pt and Spouse deny further questions and were taken out via w/c by HARDWARE INSTALLATION COORDINATOR to POV with all belongings.
== END 2018-06-26 13:21 | disposition home or self-care (01) | DRG 372 ==
LOC: ED 06:46 → AC 06-24 09:17
PROVIDERS: Internal Medicine; Nurse Practitioner Adult Health; Admitting Provider Internal Medicine; Emergency Provider Emergency Medicine; Family Provider Internal Medicine; PCP Internal Medicine; Visit Provider Internal Medicine
DX: A04.8 Other specified bacterial intestinal infections (principal); N39.0 Urinary tract infection, site not specified; R78.81 Bacteremia; G60.9 Hereditary and idiopathic neuropathy, unspecified; D75.1 Secondary polycythemia; B96.1 Klebsiella pneumoniae [K. pneumoniae] as the cause of diseases classified elsewhere; G47.33 Obstructive sleep apnea (adult) (pediatric); K21.9 Gastro-esophageal reflux disease without esophagitis; I12.9 Hypertensive chronic kidney disease with stage 1 through stage 4 chronic kidney disease, or unspecified chronic kidney disease; N18.3 Chronic kidney disease, stage 3 (moderate); B95.2 Enterococcus as the cause of diseases classified elsewhere; Z96.652 Presence of left artificial knee joint; Z98.890 Other specified postprocedural states
CPT/HCPCS: 36415; 36591; 51798; 71045; 74018; 80048; 80053; 81003; 81015; 83605; 83735; 84145; 85025; 87040; 87077; 87086; 87150; 87186; 87205; 87400; 87507; 87633; 96361; 96365; 96375; 99284; 99285; J0696; J1644; J1885; J1956

== ENCOUNTER → 2018-08-13 13:12 | Outpatient (CLI) | payer MEDICARE, OTHER, SELFPAY ==
[2018-06-23 09:30] VITALS: BMI 29.0
--- NOTE | 2018-08-13 | DI.CT.S_ITS ---
PROCEDURE: CT HEAD/BRAIN WO CON INDICATIONS: HEADACHE TECHNIQUE: Noncontrast 4.5 mm thick angled axial sections acquired from the foramen magnum to the vertex, with coronal and sagittal reformats. For radiation dose reduction, the following was used: automated exposure control, adjustment of mA and/or kV according to patient size. COMPARISON: [facility], CT, HEAD WITHOUT CONTRAST, 03/31/2015, 2:36. FINDINGS: Image quality: Excellent. CSF spaces: Basal cisterns are patent. No extra-axial fluid collections. The ventricles are symmetric in size and shape. Brain: No intracranial bleeds or masses. There is cerebral volume loss for age, with resultant ventricular and sulcal prominence. There are periventricular and deep white matter chronic small vessel ischemic changes. There is intracranial internal carotid artery atherosclerosis. Skull and face: Calvarium and visualized facial bones appear intact, without suspicious lesions. Sinuses: Visualized sinuses and mastoids are clear. IMPRESSION: No acute intracranial abnormality. Volume loss and small vessel ischemic disease. Dictated by: Rene Dunbar M.D. on 08/13/2018 at 13:38 Approved by: Rene Dunbar M.D. on 08/13/2018 at 13:39
== END ==
PROVIDERS: PCP Internal Medicine; Visit Provider Internal Medicine
DX: R51 Headache (principal)
CPT/HCPCS: 70450

== ENCOUNTER → 2019-01-21 08:31 | Outpatient (CLI) | payer MEDICARE, OTHER, SELFPAY ==
[2018-06-23 09:30] VITALS: BMI 29.0
[2019-01-21 09:13] LABS: Add Manual Diff / Slide Review NO; Basophils Absolute Auto 0 /uL (0-100); Basophils Percent Auto 0.6 % (0-2); Eosinophils Absolute Auto 100 /uL (0-450); Eosinophils Percent Auto 2.2 % (2-4); Hemoglobin 18.8 g/dL (13.5-17.5); Lymphocytes Absolute Auto 1400 /uL (1100-4500); Lymphocytes Percent Auto 23.1 % (25-40); Mean Corpuscular HGB Conc 34.1 % (30-36); Mean Corpuscular Hemoglobin 30.3 PG (26-34); Mean Corpuscular Volume 88.7 fL (80-100); Monocytes Absolute Auto 600 /uL (0-900); Monocytes Percent Auto 9.6 % (3-14); Neutrophils Absolute Auto 3900 /uL (1500-7000); Neutrophils Percent Auto 64.5 % (50-75); Platelet Count 189 X10^3/uL (150-400); Red Cell Distribution Width 14.7 % (11.6-14.8); White Blood Cell Count 6.1 X10^3/uL (4.5-11.0)
[2019-01-21 09:32] LABS: BUN Creatinine Ratio 19.3 (6-22); Blood Urea Nitrogen 27 mg/dL (9-20); Calcium 9.4 mg/dL (8.4-10.2); Carbon Dioxide 28 mmol/L (22-32); Chloride 104 mmol/L (98-107); Estimated Glomerular Filt Rate 49.8 mL/min (>60); Glucose 88 mg/dL (80-110); HEMOLYSIS < 15 (0-50); Potassium 4.4 mmol/L (3.4-5.1); Sodium 140 mmol/L (137-145)
== END ==
PROVIDERS: PCP Internal Medicine; Visit Provider Internal Medicine
DX: I10 Essential (primary) hypertension (principal); M15.0 Primary generalized (osteo)arthritis; E29.1 Testicular hypofunction; D75.1 Secondary polycythemia
CPT/HCPCS: 36415; 80048; 84403; 85025

== ENCOUNTER → 2019-01-29 09:58 | Outpatient (CLI) | payer MEDICARE, OTHER, SELFPAY ==
[2018-06-23 09:30] VITALS: BMI 29.0
[2019-01-29 10:15] LABS: Add Manual Diff / Slide Review NO; Basophils Absolute Auto 0 /uL (0-100); Basophils Percent Auto 0.7 % (0-2); Eosinophils Absolute Auto 100 /uL (0-450); Eosinophils Percent Auto 2.1 % (2-4); Hematocrit 57.1 % (41-53); Lymphocytes Absolute Auto 1400 /uL (1100-4500); Lymphocytes Percent Auto 20.3 % (25-40); Mean Corpuscular HGB Conc 33.3 % (30-36); Mean Corpuscular Hemoglobin 29.7 PG (26-34); Mean Corpuscular Volume 89.2 fL (80-100); Monocytes Absolute Auto 700 /uL (0-900); Monocytes Percent Auto 10.5 % (3-14); Neutrophils Absolute Auto 4600 /uL (1500-7000); Neutrophils Percent Auto 66.4 % (50-75); Platelet Count 207 X10^3/uL (150-400); Red Blood Cell Count 6.41 X10^6/uL (4.5-5.9)
[2019-01-29 12:00] LABS: 585 Gram Check PASS; Zero Check Sebra Scale PASS
[2019-01-29 12:01] LABS: Dizziness NO; Postdiastolic BP 83; Postsystolic BP 136; Prediastolic 81; Presystolic 135; Pulse 84; Site of phlebotomy RAC; Swelling NO; Therapeutic Phleb Comment NO COMMENT
== END ==
PROVIDERS: PCP Internal Medicine; Visit Provider Internal Medicine
DX: D75.1 Secondary polycythemia (principal)
CPT/HCPCS: 36415; 85025; 99195

== ENCOUNTER → 2019-07-08 11:16 | Outpatient (CLI) | payer MEDICARE, OTHER, SELFPAY ==
[2019-07-08 11:16] VITALS: BMI 29.0
[2019-07-08 12:17] LABS: Add Manual Diff / Slide Review NO; Basophils Absolute Auto 0 /uL (0-100); Basophils Percent Auto 0.5 % (0-2); Eosinophils Absolute Auto 100 /uL (0-450); Eosinophils Percent Auto 0.9 % (2-4); Hematocrit 55.4 % (41-53); Hemoglobin 18.5 g/dL (13.5-17.5); Lymphocytes Absolute Auto 1300 /uL (1100-4500); Lymphocytes Percent Auto 18.3 % (25-40); Mean Corpuscular HGB Conc 33.3 % (30-36); Mean Corpuscular Hemoglobin 28.8 PG (26-34); Mean Corpuscular Volume 86.6 fL (80-100); Monocytes Absolute Auto 800 /uL (0-900); Neutrophils Absolute Auto 5000 /uL (1500-7000); Neutrophils Percent Auto 69.3 % (50-75); Platelet Count 188 X10^3/uL (150-400); Red Cell Distribution Width 16.7 % (11.6-14.8); White Blood Cell Count 7.3 X10^3/uL (4.5-11.0)
[2019-07-08 12:40] LABS: HEMOLYSIS < 15 (0-50); Iron 116 ug/dL (49-181)
[2019-07-08 12:51] LABS: Percent Iron Saturation 30 % (20-50); Total Iron Binding Capacity 389 ug/dL (261-462); Transferrin 315 mg/dL (206-381)
== END ==
PROVIDERS: PCP Internal Medicine; Referring Provider Internal Medicine; Visit Provider Internal Medicine
DX: K62.5 Hemorrhage of anus and rectum (principal)
CPT/HCPCS: 36415; 83540; 83550; 85025

== ENCOUNTER 2019-07-09 14:23 | Emergency (ER) | payer MEDICARE, OTHER, SELFPAY ==
[2019-07-08 11:16] VITALS: BMI 29.0
[2019-07-09 14:30] VITALS: BP 138/83; PULSE 101; RESP 16; TEMP 37; O2SAT 96
--- NOTE | 2019-07-09 15:23 | ED_ITS ---
HPI - GI Bleed General Chief complaint: GI Bleed Stated complaint: blood in stool x4 days Time Seen by Provider: 07/09/19 14:50 Source: patient Mode of arrival: Ambulatory Limitations: no limitations History of Present Illness HPI Narrative: 73-year-old male here for evaluation of 3 days of bright red blood and dark colored stool. He states that 3 days ago he had 1 episode very loose bright red blood. No abdominal pain. No vomiting. States that since then the stool has become more formed and Less bloody however has now dark in color. He denies alcohol use. Denies anti-inflammatories. Not on anticoagulat ion except for a baby aspirin on a daily basis. Has never had a GI bleed. His last colonoscopy was 8 years ago when he states that it was ?normal ?he was told to come back in 10 years. No recent travel. No antibiotic use. No camping. No drinking untreated water. No fevers. Does have a history of reflux disease and is on medication for this. Related Data Home Medications Medication Instructions Recorded Confirmed aspirin 81 mg tablet,delayed 81 mg PO DAILY 06/17/18 12/25/18 release lisinopril 10 mg tablet 10 mg PO DAILY 06/17/18 12/25/18 testosterone cypionate 06/17/18 12/25/18 Resprionics Dreamstation CPAP #1 ea 06/19/18 12/25/18 amlodipine 5 mg tablet 5 mg PO DAILY 06/19/18 12/25/18 nicotinamide Ribdside Chloride 250 mg PO DAILY 06/19/18 12/25/18 nortriptyline 25 mg capsule 25 mg PO BID cap 06/19/18 12/25/18 pantoprazole 40 mg tablet,delayed 40 mg PO DAILY 06/19/18 12/25/18 release Algal [place]-3 DHA 1 tab PO DAILY 06/23/18 12/25/18 Fzthiw-Cbhu-Tkrqes-Fish Oil 1 cap PO DAILY 06/23/18 12/25/18 Trimix 06/23/18 12/25/18 acetaminophen [Tylenol Extra 1 tab PO PRN PRN 06/23/18 12/25/18 Strength] cholecalciferol (vitamin D3) 2,000 unit PO DAILY 06/23/18 12/25/18 [Vitamin D3] potassium 10 meq PO 2XW 06/23/18 12/25/18 Previous Rx's Medication Instructions Recorded levofloxacin 750 mg PO DAILY #5 tab 06/26/18 Allergies Allergy/AdvReac Type Severity Reaction Status Date / Time EGGS Allergy Mild Uncoded 12/25/18 14:11 Review of Systems Constitutional Constitutional: Denies fever(s) and Denies headache(s) ENT Ears, Nose, Mouth, and Throat: Denies headache(s) Cardiovascular Cardiovascular: Denies chest pain and Denies dyspnea Respiratory Respiratory: Denies cough and Denies dyspnea Gastrointestinal Gastrointestinal: Denies abdominal pain, Denies constipation, Denies cramping, Reports diarrhea, Denies nausea and Denies vomiting Comments: Bright red blood per rectum and dark colored stool Genitourinary Genitourinary: Denies dysuria Musculoskeletal Musculoskeletal: Denies myalgias and Denies arthralgias Integumentary/Breasts Skin/Breast: Denies lesions and Denies rash Neurologic Neurologic: Denies behavioral changes and Denies headache(s) Psychiatric Psychiatric: Denies behavioral changes Hematologic/Lymphatic Hematologic/Lymphatic: Denies easy bleeding and Denies easy bruising Patient History Medical History Acute UTI (Acute) Ankle fracture, right (Acute) Arthritis (Acute) Dysphagia (Acute) Enterococcus UTI (Acute) GERD (gastroesophageal reflux disease) (Acute) Global amnesia (Acute) HTN (hypertension) (Acute) Hypogonadism (Acute) Idiopathic neuropathy (Acute) Klebsiella sepsis (Acute) Nephrolithiasis (Acute) Obstructive sleep apnea of adult (Chronic) Polycythemia (Acute) Sepsis (Acute) Social History household members: spouse Smoking Status: Never smoker Smoking Status: Never smoker alcohol intake frequency: a few times a month Substance Use Type: does not use Exam Initial Vital Signs Initial Vital Signs: Vital Signs Temperature 98.6 F 07/09/19 14:30 Pulse Rate 101 H 07/09/19 14:30 Respiratory Rate 16 07/09/19 14:30 Blood Pressure 138/83 07/09/19 14:30 Pulse Oximetry 96 07/09/19 14:30 Const General: cooperative, comfortable, well developed and well groomed Limitations: mental status not altered HENMT Head: normal to inspection and normocephalic Resp Effort & Inspection: normal respiratory effort Cardio Rate: tachycardic Rhythm: regular rhythm GI Inspection: non-distended Palpation: soft, No firm and No tender Rectal Exam: No hemorrhoids and No lesions Skin Lesions: no lesions Rashes: no rashes Neuro General: alert and awake Cognition: normal cognition Speech: speech normal Gait: normal gait Motor: muscle tone normal throughout Sensory Exam: no sensory deficits noted Extrem General: normal to inspection and capillary refill normal Psych Appearance: grossly normal and well kempt Scores GCS [place] coma scale eye opening: Spontaneous [place] coma scale verbal response: Orientated [place] coma scale motor response: Obey commands [place] coma scale total score: 15 Course Orders Ordered: ED Orders 07/09/19 15:23 CT abdomen pelvis w con Stat 07/09/19 15:35 Complete Blood Count AUTO DIFF Stat Comprehensive Metabolic Panel Stat Lipase Stat Discontinued Medications Sodium Chloride (Normal Saline 0.9%) 1,000 mls @ 1,000 mls/hr IV BOLUS ONE Stop: 07/09/19 16:21 Last Admin: 07/09/19 16:23 Dose: 1,000 mls/hr Documented by: ELIZABET Vital Signs Vital signs: Vital Signs - 8 hr 07/09/19 14:30 07/09/19 16:00 Temperature 98.6 F Pulse Rate 101 H 85 Respiratory Rate 16 18 Blood Pressure 138/83 Blood Pressure [Right Arm] 119/75 Pulse Oximetry 96 94 MDM - GI Bleed Lab Data Attestation: I reviewed the patient's lab results. Result diagrams: 07/09/19 15:35 07/09/19 15:35 Labs: Lab Results 07/09/19 07/09/19 Range/Units 15:35 15:35 WBC 7.8 (4.5-11.0) X10^3/uL RBC 6.18 H (4.5-5.9) X10^6/uL Hgb 17.6 H (13.5-17.5) g/dL Hct 53.5 H (41-53) % MCV 86.6 (80-100) fL MCH 28.4 (26-34) PG MCHC 32.8 (30-36) % RDW 16.6 H (11.6-14.8) % Plt Count 195 (150-400) X10^3/uL Neut % (Auto) 64.3 (50-75) % Lymph % (Auto) 20.5 L (25-40) % [place] % (Auto) 13.2 (3-14) % Eos % (Auto) 1.3 L (2-4) % Baso % (Auto) 0.7 (0-2) % Neut # (Auto) 5000 (3852-8740) /uL Lymph # (Auto) 1600 (8946-5540) /uL [place] # (Auto) 1000 H (0-900) /uL Eos # (Auto) 100 (0-450) /uL Baso # (Auto) 100 (0-100) /uL Sodium 134 L (137-145) mmol/L Potassium 4.6 (3.4-5.1) mmol/L Chloride 102 (98-107) mmol/L Carbon Dioxide 24 (22-32) mmol/L BUN 26 H (9-20) mg/dL Creatinine 1.21 (0.66-1.25) mg/dL Estimated GFR 58.9 L (>60) mL/min BUN/Creatinine Ratio 21.5 (6-22) Glucose 94 (80-110) mg/dL Calcium 9.4 (8.4-10.2) mg/dL Total Bilirubin 0.8 (0.2-1.3) mg/dL AST 30 (17-59) IU/L ALT 20 (<50) IU/L Alkaline Phosphatase 83 (38-126) U/L Total Protein 7.5 (6.3-8.2) g/dL Albumin 4.3 (3.5-5.0) g/dL Globulin 3.2 (1.7-4.1) g/dL Albumin/Globulin Ratio 1.3 (1.0-2.8) Lipase 165 (23-300) U/L Imaging Data CT scan - abdomen/pelvis: Radiologist's Impression: [address] [address] [address] Scan Report Signed Patient: Venancio Austin FMR#: [id number] : 7Acct:[id number] Age/Sex: 73 / MDate of Service: 07/09/19 Loc: ED Accession Number: [id number] Procedure: CT abdomen pelvis w con Ordering Provider: Samuel Cantu D.O. PROCEDURE: CT ABDOMEN PELVIS W CON INDICATIONS: Rectal bleeding TECHNIQUE: After the administration of intravenous contrast, 5 mm thick sections acquired from the diaphragm to the symphysis. 5 mm coronal and sagittal reformats were acquired. For radiation dose reduction, the following was used: automated exposure control, adjustment of mA and/or kV according to patient size. COMPARISON: None. FINDINGS: Image quality: Excellent. ABDOMEN: Lung bases: There is mild dependent atelectasis bilaterally. Heart size is normal. Solid organs: Evaluation of the liver demonstrates no focal hepatic lesions. The gallbladder appears within normal limits without calcified gallstones. Biliary system is non-dilated. Pancreas enhances normally. No peripancreatic fat stranding or fluid collections. No pancreatic duct dilatation. The spleen is normal in size. No adrenal nodules. Kidneys demonstrate no hydronephrosis. There is a small nonobstructing left renal stone measuring 2-3 mm. there are bilateral parapelvic renal cysts. Peritoneum and bowel: Small bowel loops demonstrate normal wall thickness and caliber. Colonic diverticulosis is demonstrated most prominent within the sigmoid colon. There is mild segmental wall thickening within the sigmoid colon suggestive of a mild colitis. No law-diverticular inflammatory fat stranding or fluid collections. No free fluid or air. Nodes and vessels: No retroperitoneal or mesenteric adenopathy by size criteria. Aorta and inferior vena cava are normal in size. Miscellaneous: No ventral hernias. PELVIS: Genitourinary: There is mild trabeculation of the bladder wall. The prostate demonstrates heterogeneous enlargement with multiple internal calcifications. Miscellaneous: No inguinal hernias or adenopathy. Bones: No suspicious bony lesions. No vertebral body compression fractures. IMPRESSION: 1. Colonic diverticulosis without definite peridiverticular inflammatory fat stranding or fluid to suggest acute diverticulitis. Mild segmental wall thickening in the sigmoid colon is compatible with a mild nonspecific colitis. 2. Left nephrolithiasis and bilateral parapelvic renal cysts. No hydronephrosis. Dictated by: Easton Lopez M.D. on 07/09/2019 at 16:39 Approved by: Easton Lopez M.D. on 07/09/2019 at 16:47 MDM Narrative Medical decision making narrative: Patient states that his symptoms are actually improving. He has no hemorrhoids on exam. Diverticulosis without diverticulitis on the CT scan. Patient is not anemic. Soft abdomen. I feel we can safely discharge home without further workup here in the ER. Did inform the patient the importance of calling his GI provider to schedule colonoscopy. He is on a PPI. Eleven stop his aspirin. He is given return precautions and follow-up instructions. He expressed understanding and agreement. Discharge Plan Departure Patient Disposition: Home Clinical Impression: Rectal bleeding Instructions: DI for Rectal Bleeding Activity Restrictions/Additional Instructions: Like we discussed I do recommend that you stop the aspirin. I also recommend that you avoid taking anti-inflammatories such as Motrin/Naprosyn/Aleve. Continue to take your reflux disease medication. Also recommend you contact your primary provider and also your GI provider to schedule a colonoscopy. Return to the emergency department for any new or worsening symptoms Prescriptions: No Action acetaminophen [Tylenol Extra Strength] 500 mg Tablet 1 tab PO PRN PRN (Reason: Fever) RF: 0 potassium 99 mg Tablet 10 meq PO 2XW RF: 0 Algal [place]-3 DHA 200 mg Capsule 1 tab PO DAILY RF: 0 cholecalciferol (vitamin D3) [Vitamin D3] 2,000 unit Capsule 2,000 unit PO DAILY RF: 0 Hivgit-Tdtj-Dlusni-Fish Oil 1 cap PO DAILY RF: 0 Trimix RF: 0 levofloxacin 750 mg tablet 750 mg PO DAILY Qty: 5 RF: 0 aspirin [Adult Low Dose Aspirin] 81 mg tablet,delayed release (DR/EC) 81 mg PO DAILY RF: 0 lisinopril 10 mg tablet 10 mg PO DAILY RF: 0 testosterone cypionate RF: 0 nortriptyline 25 mg capsule 25 mg PO BID RF: 0 amlodipine 5 mg tablet 5 mg PO DAILY RF: 0 pantoprazole 40 mg tablet,delayed release (DR/EC) 40 mg PO DAILY RF: 0 nicotinamide Ribdside Chloride 250 mg PO DAILY RF: 0 (DME) Resprionics Dreamstation CPAP Qty: 1 RF: 0 Referrals: Leroy Sandoval MD [Primary Care Provider] -
[2019-07-09 15:52] LABS: Add Manual Diff / Slide Review NO; Basophils Absolute Auto 100 /uL (0-100); Basophils Percent Auto 0.7 % (0-2); Eosinophils Absolute Auto 100 /uL (0-450); Eosinophils Percent Auto 1.3 % (2-4); Hematocrit 53.5 % (41-53); Hemoglobin 17.6 g/dL (13.5-17.5); Lymphocytes Absolute Auto 1600 /uL (1100-4500); Lymphocytes Percent Auto 20.5 % (25-40); Mean Corpuscular HGB Conc 32.8 % (30-36); Mean Corpuscular Hemoglobin 28.4 PG (26-34); Mean Corpuscular Volume 86.6 fL (80-100); Monocytes Absolute Auto 1000 /uL (0-900); Monocytes Percent Auto 13.2 % (3-14); Neutrophils Absolute Auto 5000 /uL (1500-7000); Neutrophils Percent Auto 64.3 % (50-75); Platelet Count 195 X10^3/uL (150-400); Red Blood Cell Count 6.18 X10^6/uL (4.5-5.9); Red Cell Distribution Width 16.6 % (11.6-14.8); White Blood Cell Count 7.8 X10^3/uL (4.5-11.0)
[2019-07-09 16:00] VITALS: BP 119/75; PULSE 85; RESP 18; O2SAT 94
[2019-07-09 16:06] LABS: Alanine Aminotransferase 20 IU/L (<50); Albumin 4.3 g/dL (3.5-5.0); Albumin Globulin Ratio 1.3 (1.0-2.8); Alkaline Phosphatase 83 U/L (38-126); Aspartate Aminotransferase 30 IU/L (17-59); BUN Creatinine Ratio 21.5 (6-22); Bilirubin Total 0.8 mg/dL (0.2-1.3); Blood Urea Nitrogen 26 mg/dL (9-20); Calcium 9.4 mg/dL (8.4-10.2); Carbon Dioxide 24 mmol/L (22-32); Chloride 102 mmol/L (98-107); Estimated Glomerular Filt Rate 58.9 mL/min (>60); Globulin 3.2 g/dL (1.7-4.1); Glucose 94 mg/dL (80-110); HEMOLYSIS 30 (0-50); Lipase 165 U/L (23-300); Potassium 4.6 mmol/L (3.4-5.1); Sodium 134 mmol/L (137-145); Total Protein 7.5 g/dL (6.3-8.2)
[2019-07-09] MEDS: SODIUM CHLORIDE 0.9% 1,000 ML 1000 ML IV (16:23)
[2019-07-09 17:18] VITALS: BP 122/66; PULSE 71; RESP 18; O2SAT 98
== END 2019-07-09 17:18 | disposition home or self-care (01) ==
PROVIDERS: Emergency Provider Emergency Medicine; PCP Internal Medicine
DX: K62.5 Hemorrhage of anus and rectum (principal)
CPT/HCPCS: 36415; 74177; 80053; 83690; 85025; 99284; Q9967

== ENCOUNTER 2019-08-07 16:53 | Emergency (ER) | payer MEDICARE, OTHER, SELFPAY ==
[2019-07-08 11:16] VITALS: BMI 29.0
[2019-08-07 16:55] VITALS: BP 143/85; PULSE 91; RESP 15; TEMP 37.4; O2SAT 96; BMI 31.2
--- NOTE | 2019-08-07 17:24 | DI.RAD.S_ITS ---
PROCEDURE: XR KNEE RT 3V INDICATIONS: r/o foreign body, patella pain TECHNIQUE: 3 views of the knee were acquired. COMPARISON: [facility], , KNEE 3V LEFT, 05/16/2017, 10:59. FINDINGS: Bones: No fractures or dislocations. Distal femoral exostosis seen on lateral view. Tricompartment degenerative arthritis. Soft tissues: Minimal joint effusion. No suspicious soft tissue calcifications. No radiopaque foreign body. IMPRESSION: Tricompartment degenerative arthritis. No radiopaque foreign body. No evidence acute bony abnormality of the right knee. If clinical suspicion and/or symptoms persist, further assessment with repeat plain films, or advanced imaging (e.g., CT, MRI, or bone scan) may be helpful for further assessment. Dictated by: Todd Jacques M.D. on 08/07/2019 at 17:42 Approved by: Todd Jacques M.D. on 08/07/2019 at 17:43
[2019-08-07] MEDS: LIDO 1%/SOD BICARB 8.4% (10ML) 10 ML SYRINGE INJ (17:38)
[2019-08-07] MEDS: TET,DIPH,PERTUSS(ACELL),VAC/PF 0.5 ML SYRINGE IM (17:39)
--- NOTE | 2019-08-07 17:43 | ED.WOUNDLAC ---
HPI - Wound/Laceration <Erinn PerkinsYISSEL - Last Filed: 08/07/19 21:05> General Chief Complaint: Wound/Laceration Stated Complaint: right knee injury Time Seen by Provider: 08/07/19 17:04 Source: patient Mode of arrival: Wheelchair Limitations: no limitations History of Present Illness HPI narrative: 74yo male presents to the emergency department for a laceration to right knee. He states he was cutting a metal pipe when the soap grinder slipped and cut his right knee. He states bleeding was controlled with pressure. He denies taking any blood thinners. Patient states his last tetanus was 2010. Patient denies any numbness, tingling, difficulty bending or straightening knee, chest pain, shortness of breath, fevers, chills, nausea, vomiting, diarrhea, or any other concerns. Related Data Home Medications Medication Instructions Recorded Confirmed aspirin 81 mg tablet,delayed 81 mg PO DAILY 06/17/18 07/23/19 release lisinopril 10 mg tablet 10 mg PO DAILY 06/17/18 07/23/19 testosterone cypionate 06/17/18 07/23/19 Resprionics Dreamstation CPAP #1 ea 06/19/18 07/23/19 amlodipine 5 mg tablet 5 mg PO DAILY 06/19/18 07/23/19 nicotinamide Ribdside Chloride 250 mg PO DAILY 06/19/18 07/23/19 nortriptyline 25 mg capsule 25 mg PO BID cap 06/19/18 07/23/19 pantoprazole 40 mg tablet,delayed 40 mg PO DAILY 06/19/18 07/23/19 release Algal [place]-3 DHA 1 tab PO DAILY 06/23/18 07/23/19 Nrnvoq-Kxrb-Rzjrut-Fish Oil 1 cap PO DAILY 06/23/18 07/23/19 Trimix 06/23/18 07/23/19 acetaminophen [Tylenol Extra 1 tab PO PRN PRN 06/23/18 07/23/19 Strength] cholecalciferol (vitamin D3) 2,000 unit PO DAILY 06/23/18 07/23/19 [Vitamin D3] potassium 10 meq PO 2XW 06/23/18 07/23/19 Previous Rx's Medication Instructions Recorded levofloxacin 750 mg PO DAILY #5 tab 06/26/18 Allergies Allergy/AdvReac Type Severity Reaction Status Date / Time No Known Drug Allergies Allergy Verified 08/07/19 17:01 Review of Systems <YISSEL Sands - Last Filed: 08/07/19 21:05> Review of Systems Narrative: REVIEW OF SYSTEMS: GENERAL: Denies fever or chills. HENT: Denies head trauma. EYE: Denies double vision or vision loss. CARDIOVASCULAR: Denies syncope. MUSCULOSKELETAL: Reports patella pain, see HPI. INTEGUMENTARY: Complains of right knee laceration, see HPI. NEURO: Denies numbness or tingling. Patient History <YISSEL Sands - Last Filed: 08/07/19 21:05> Medical History Acute UTI (Acute) Ankle fracture, right (Acute) Arthritis (Acute) Dysphagia (Acute) Enterococcus UTI (Acute) GERD (gastroesophageal reflux disease) (Acute) Global amnesia (Acute) HTN (hypertension) (Acute) Hypogonadism (Acute) Idiopathic neuropathy (Acute) Klebsiella sepsis (Acute) Nephrolithiasis (Acute) Obstructive sleep apnea of adult (Chronic) Polycythemia (Acute) Sepsis (Acute) Surgical History H/O lithotripsy (Acute) Status post left knee replacement (Acute) Status post ORIF of fracture of ankle (Acute) Total knee replacement status (Acute) Family History Mother Parkinson disease Father Hypertension TIA (transient ischemic attack) Osteoarthritis Social History household members: spouse Smoking Status: Never smoker Smoking Status: Never smoker alcohol intake frequency: a few times a month Substance Use Type: does not use Exam <YISSEL Sands - Last Filed: 08/07/19 21:05> Initial Vital Signs Initial Vital Signs: Vital Signs Temperature 99.3 F 08/07/19 16:55 Pulse Rate 91 H 08/07/19 16:55 Respiratory Rate 15 08/07/19 16:55 Blood Pressure 143/85 H 08/07/19 16:55 Pulse Oximetry 96 08/07/19 16:55 PHYSICAL EXAMINATION: GENERAL: Well groomed, alert, and cooperative. Answers questions promptly and appropriately. Vital signs noted. HENT: Normocephalic, atraumatic. RESPIRATORY: Normal respiratory rate, trachea midline, airway patent. No stridor, nasal flaring or accessory muscle use. MUSCULOSKELETAL: Full range of motion of right knee, good strength against resistance. Posterior tibialis pulse 2 +, strong. No surrounding erythema. Slight tenderness to superior patella. Normal gait and coordination. Equal tone and mass bilaterally. EXTREMITIES: CMS intact. Moves all extremities. SKIN: Warm, dry, soft, appropriate color for ethnicity. A 5 cm vertical laceration noted to medial aspect of right knee-subcu tissue visualized. A 4.5 cm horizontal laceration noted approximately 5 cm above patella, very small amount of subcu tissue visualized. No foreign bodies, no tendons, no fascia visualized NEURO: Alert and Oriented X 3. Good coordination. PSYCH: Appropriate affect and mood. <Gladis De La Cruz MD - Last Filed: 08/08/19 00:06> Initial Vital Signs Initial Vital Signs: Vital Signs Temperature 99.3 F 08/07/19 16:55 Pulse Rate 91 H 08/07/19 16:55 Respiratory Rate 15 08/07/19 16:55 Blood Pressure 143/85 H 08/07/19 16:55 Pulse Oximetry 96 08/07/19 16:55 Procedures <YISSEL Sands - Last Filed: 08/07/19 21:05> Laceration Repair Laceration 1: Site: lower extremity Side (If applicable): right Size (cm): 4.5 Description: linear Depth: simple, single layer Local Anesthetic: lidocaine 1% and with bicarb Amount of anesthesia used (mL): 4 Pre-repair: wound explored and irrigated extensively Skin layer closed with: nylon Size (cm): 4-0 Number of sutures: 2 Technique: simple, interrupted Laceration 2: Site: lower extremity Side (If applicable): right Size (cm): 5 Description: linear Depth: simple, single layer Local Anesthetic: lidocaine 1% and with bicarb Amount of anesthesia used (mL): 6 Pre-repair: wound explored Skin layer closed with: nylon Size (cm): 4-0 Number of sutures: 4 Technique: simple, interrupted Course <YISSEL Sands - Last Filed: 08/07/19 21:05> Course Course Narrative: Patient's wound was extensively irrigated with over 400 mL of normal saline. No foreign bodies found on exploration. Patient tolerated procedure well, see procedure note. Orders Ordered: ED Orders 08/07/19 17:24 XR knee RT 3V Stat Discontinued Medications Bacitracin (Bacitracin) 1 applic TOP NOW ONE Stop: 08/07/19 18:35 Last Admin: 08/07/19 19:03 Dose: 1 applic Documented by: SARAH Diphtheria/Tetanus/Acell Pertussis (Adacel) 0.5 ml IM .ONCE ONE Stop: 08/07/19 17:25 Last Admin: 08/07/19 17:39 Dose: 0.5 ml Documented by: SARAH Lidocaine/Sodium Bicarbonate (Buffered Lidocaine 10 Ml Syr) 10 ml INJ NOW ONE Stop: 08/07/19 17:25 Last Admin: 08/07/19 17:38 Dose: 10 ml Documented by: SARAH Vital Signs Vital signs: Vital Signs - 8 hr 08/07/19 16:55 08/07/19 18:50 Temperature 99.3 F Pulse Rate 91 H 71 Respiratory Rate 15 15 Blood Pressure 143/85 H Blood Pressure [Left Arm] 135/73 Pulse Oximetry 96 98 <Gladis De La Cruz MD - Last Filed: 08/08/19 00:06> Orders Ordered: ED Orders 08/07/19 17:24 XR knee RT 3V Stat Discontinued Medications Bacitracin (Bacitracin) 1 applic TOP NOW ONE Stop: 08/07/19 18:35 Last Admin: 08/07/19 19:03 Dose: 1 applic Documented by: SARAH Diphtheria/Tetanus/Acell Pertussis (Adacel) 0.5 ml IM .ONCE ONE Stop: 08/07/19 17:25 Last Admin: 08/07/19 17:39 Dose: 0.5 ml Documented by: SARAH Lidocaine/Sodium Bicarbonate (Buffered Lidocaine 10 Ml Syr) 10 ml INJ NOW ONE Stop: 08/07/19 17:25 Last Admin: 08/07/19 17:38 Dose: 10 ml Documented by: SARAH Vital Signs Vital signs: Vital Signs - 8 hr 08/07/19 16:55 08/07/19 18:50 Temperature 99.3 F Pulse Rate 91 H 71 Respiratory Rate 15 15 Blood Pressure 143/85 H Blood Pressure [Left Arm] 135/73 Pulse Oximetry 96 98 MDM - Wound/Laceration <YISSEL Sands - Last Filed: 08/07/19 21:05> Medical Records Attestation: I reviewed the patient's medical records. Lab Data Attestation: I reviewed the patient's lab results. Imaging Data Extremity x-ray #1: Radiologist's Impression: [address] [address] XRay Report Signed Patient: Venancio Austin FMR#: [id number] : 7Acct:[id number] Age/Sex: 74 / MDate of Service: 08/07/19 Loc: ED Accession Number: [id number] Procedure: XR knee RT 3V Ordering Provider: Erinn Perkins PROCEDURE: XR KNEE RT 3V INDICATIONS: r/o foreign body, patella pain TECHNIQUE: 3 views of the knee were acquired. COMPARISON: [facility], , KNEE 3V LEFT, 05/16/2017, 10:59. FINDINGS: Bones: No fractures or dislocations. Distal femoral exostosis seen on lateral view. Tricompartment degenerative arthritis. Soft tissues: Minimal joint effusion. No suspicious soft tissue calcifications. No radiopaque foreign body. IMPRESSION: Tricompartment degenerative arthritis. No radiopaque foreign body. No evidence acute bony abnormality of the right knee. If clinical suspicion and/or symptoms persist, further assessment with repeat plain films, or advanced imaging (e.g., CT, MRI, or bone scan) may be helpful for further assessment. Dictated by: Todd Jacques M.D. on 08/07/2019 at 17:42 Approved by: Todd Jacques M.D. on 08/07/2019 at 17:43 [facility] Narrative Medical decision making narrative: 74-year-old male presenting to the emergency department for a laceration from a soap grinder. X-ray was obtained and showed no fractures and no foreign bodies. Wound was irrigated extensively, see procedure note. Sutures were placed. Simple laceration without involvement of tendon. Patient had full range of motion of knee and good strength of knee and lower extremity against resistance. Patient was encouraged to watch for signs of infection and return immediately if these occur. Return precautions given and follow-up instructions discussed. Patient agreed to plan of care verbalized understanding. Discharge Plan Departure Patient Disposition: Home Clinical Impression: Laceration Discharge Date/Time: 08/07/19 19:09 Instructions: DI for Laceration Repair Activity Restrictions/Additional Instructions: Thank you for entrusting me with your care today. As discussed, I have placed a total of 6 sutures in your lacerations. The sutures will need to be removed in about 10-14 days. Please keep the bandage on for 24 hours, after that time you may remove the bandage and gently wash the area with soap daily. Place Neosporin or bacitracin on the area 1 to 2 times a day. Keep the area covered if you are working outside or participating in any activity that may cause the wound to become dirty. Watch for signs of infection such as increased redness, pus, pain, or fevers--if these occur please be seen immediately. Follow-up with your primary care provider, the walk-in clinic, or the emergency department for suture removal. Return emergency department for any new or worsening symptoms. Prescriptions: No Action acetaminophen [Tylenol Extra Strength] 500 mg Tablet 1 tab PO PRN PRN (Reason: Fever) RF: 0 potassium 99 mg Tablet 10 meq PO 2XW RF: 0 Algal [place]-3 DHA 200 mg Capsule 1 tab PO DAILY RF: 0 cholecalciferol (vitamin D3) [Vitamin D3] 2,000 unit Capsule 2,000 unit PO DAILY RF: 0 Nkbzvk-Tmzk-Xdwemv-Fish Oil 1 cap PO DAILY RF: 0 Trimix RF: 0 levofloxacin 750 mg tablet 750 mg PO DAILY Qty: 5 RF: 0 aspirin [Adult Low Dose Aspirin] 81 mg tablet,delayed release (DR/EC) 81 mg PO DAILY RF: 0 lisinopril 10 mg tablet 10 mg PO DAILY RF: 0 testosterone cypionate RF: 0 nortriptyline 25 mg capsule 25 mg PO BID RF: 0 amlodipine 5 mg tablet 5 mg PO DAILY RF: 0 pantoprazole 40 mg tablet,delayed release (DR/EC) 40 mg PO DAILY RF: 0 nicotinamide Ribdside Chloride 250 mg PO DAILY RF: 0 (DME) Resprionics Dreamstation CPAP Qty: 1 RF: 0 Referrals: Leroy Sandoval MD [Primary Care Provider] - <Gladis De La Cruz MD - Last Filed: 08/08/19 00:06> Cosign ED Attending Cosignature Attestation: I was immediately available in the department for consultation throughout this patient's visit. I agree with documentation as above. Gladis De La Cruz MD
[2019-08-07 18:50] VITALS: BP 135/73; PULSE 71; RESP 15; O2SAT 98
[2019-08-07] MEDS: BACITRACIN OINT 0.9 GM PCKT 1 APPLIC TOP (19:03)
== END 2019-08-07 19:09 | disposition home or self-care (01) ==
PROVIDERS: Emergency Provider Nurse Practitioner; PCP Internal Medicine
DX: S81.011A Laceration without foreign body, right knee, initial encounter (principal); W29.8XXA Contact with other powered hand tools and household machinery, initial encounter; Z23 Encounter for immunization
CPT/HCPCS: 12004; 73562; 90471; 99283; 99284; 90715

== ENCOUNTER → 2019-11-11 19:50 | Outpatient (ROUT) | payer MEDICARE, OTHER, SELFPAY ==
[2019-07-08 11:16] VITALS: BMI 29.0
[2019-11-11 20:01] LABS: Hematocrit 54.5 % (41-53); Hemoglobin 18.2 g/dL (13.5-17.5); Mean Corpuscular HGB Conc 33.3 % (30-36); Mean Corpuscular Hemoglobin 27.7 PG (26-34); Mean Corpuscular Volume 83.2 fL (80-100); Platelet Count 188 X10^3/uL (150-400); Red Blood Cell Count 6.55 X10^6/uL (4.5-5.9); Red Cell Distribution Width 17.6 % (11.6-14.8); White Blood Cell Count 7.8 X10^3/uL (4.5-11.0)
== END ==
PROVIDERS: PCP Internal Medicine; Visit Provider Internal Medicine
DX: K92.2 Gastrointestinal hemorrhage, unspecified (principal)
CPT/HCPCS: 85027

== ENCOUNTER → 2019-11-18 09:27 | Outpatient (CLI) | payer MEDICARE, OTHER, SELFPAY ==
[2019-07-08 11:16] VITALS: BMI 29.0
[2019-11-18 10:38] LABS: Alanine Aminotransferase 22 IU/L (<50); Albumin 4.3 g/dL (3.5-5.0); Albumin Globulin Ratio 1.3 (1.0-2.8); Alkaline Phosphatase 95 U/L (38-126); Aspartate Aminotransferase 30 IU/L (17-59); BUN Creatinine Ratio 16.5 (6-22); Bilirubin Total 0.9 mg/dL (0.2-1.3); Blood Urea Nitrogen 18 mg/dL (9-20); Calcium 9.6 mg/dL (8.4-10.2); Carbon Dioxide 32 mmol/L (22-32); Chloride 101 mmol/L (98-107); Cholesterol 150 mg/dL (140-199); Estimated Glomerular Filt Rate > 60.0 mL/min (>60); Globulin 3.2 g/dL (1.7-4.1); Glucose 91 mg/dL (80-110); HDL Cholesterol 35 mg/dL (40-60); HEMOLYSIS < 15 (0-50); LDL Cholesterol Calculated 91 mg/dL (<100); Potassium 4.5 mmol/L (3.4-5.1); Sodium 137 mmol/L (137-145); Total Protein 7.5 g/dL (6.3-8.2); Triglycerides 118 mg/dL (35-150)
[2019-11-18 11:09] LABS: Prostate Specific Antigen Scrn 1.04 ng/mL (0.1-4.0)
== END ==
PROVIDERS: PCP Internal Medicine; Referring Provider Internal Medicine; Visit Provider Internal Medicine
DX: I10 Essential (primary) hypertension (principal); Z00.00 Encounter for general adult medical examination without abnormal findings
CPT/HCPCS: 36415; 80053; 80061; G0103

== ENCOUNTER → 2019-12-10 09:53 | Outpatient (CLI) | payer MEDICARE, OTHER, SELFPAY ==
[2019-07-08 11:16] VITALS: BMI 29.0
[2019-12-10 11:50] LABS: 585 Gram Check PASS; Dizziness NO; Postdiastolic BP 88; Postsystolic BP 135; Prediastolic 94; Presystolic 147; Pulse 91; Site of phlebotomy RAC; Swelling NO; Therapeutic Phleb Comment NO COMMENT; Zero Check Sebra Scale PASS
== END ==
PROVIDERS: PCP Internal Medicine; Referring Provider Internal Medicine; Visit Provider Internal Medicine
DX: D75.1 Secondary polycythemia (principal)
CPT/HCPCS: 99195

== ENCOUNTER → 2020-01-09 15:23 | Outpatient (CLI) | payer MEDICARE, OTHER, SELFPAY ==
[2019-07-08 11:16] VITALS: BMI 29.0
[2020-01-09 15:44] LABS: Hematocrit 53.6 % (41-53)
[2020-01-09 18:30] LABS: Testosterone 856 ng/dL (71.8-623)
== END ==
PROVIDERS: PCP Internal Medicine; Referring Provider Urology; Visit Provider Urology
DX: R79.89 Other specified abnormal findings of blood chemistry (principal)
CPT/HCPCS: 36415; 84403; 85014

== ENCOUNTER → 2020-01-22 09:56 | Outpatient (CLI) | payer MEDICARE, OTHER, SELFPAY ==
[2019-07-08 11:16] VITALS: BMI 29.0
[2020-01-22 12:41] LABS: 585 Gram Check PASS; Dizziness NO; Postdiastolic BP 82; Postsystolic BP 127; Prediastolic 83; Presystolic 127; Pulse 82; Site of phlebotomy RAC; Swelling NO; Therapeutic Phleb Comment NO COMMENT; Zero Check Sebra Scale PASS
== END ==
PROVIDERS: PCP Internal Medicine; Referring Provider Internal Medicine; Visit Provider Internal Medicine
DX: D75.1 Secondary polycythemia (principal)
CPT/HCPCS: 99195

== ENCOUNTER → 2020-04-20 10:03 | Outpatient (CLI) | payer MEDICARE, OTHER, SELFPAY ==
[2019-07-08 11:16] VITALS: BMI 29.0
[2020-04-20 10:34] LABS: Hematocrit 54.3 % (41-53); Hemoglobin 17.3 g/dL (13.5-17.5)
[2020-04-20 10:41] LABS: 585 Gram Check PASS; Dizziness NO; Postdiastolic BP 78; Postsystolic BP 124; Prediastolic 84; Presystolic 144; Pulse 91; Site of phlebotomy RAC; Swelling NO; Therapeutic Phleb Comment NO COMMENT; Zero Check Sebra Scale PASS
== END ==
PROVIDERS: PCP Internal Medicine; Referring Provider Internal Medicine; Visit Provider Internal Medicine
DX: D75.1 Secondary polycythemia (principal)
CPT/HCPCS: 85014; 85018; 99195

== ENCOUNTER → 2020-06-02 09:00 | Outpatient (CLI) | payer MEDICARE, OTHER, SELFPAY ==
[2019-07-08 11:16] VITALS: BMI 29.0
[2020-06-02 09:34] LABS: Add Manual Diff / Slide Review NO; Basophils Absolute Auto 100 /uL (0-100); Eosinophils Absolute Auto 100 /uL (0-450); Eosinophils Percent Auto 1.2 % (2-4); Hematocrit 53.7 % (41-53); Hemoglobin 17.1 g/dL (13.5-17.5); Lymphocytes Absolute Auto 1400 /uL (1100-4500); Lymphocytes Percent Auto 19.3 % (25-40); Mean Corpuscular HGB Conc 31.8 % (30-36); Mean Corpuscular Hemoglobin 25.6 PG (26-34); Mean Corpuscular Volume 80.5 fL (80-100); Monocytes Absolute Auto 800 /uL (0-900); Monocytes Percent Auto 10.9 % (3-14); Neutrophils Absolute Auto 5000 /uL (1500-7000); Neutrophils Percent Auto 67.6 % (50-75); Platelet Count 218 X10^3/uL (150-400); Red Blood Cell Count 6.68 X10^6/uL (4.5-5.9); Red Cell Distribution Width 17.5 % (11.6-14.8); White Blood Cell Count 7.4 X10^3/uL (4.5-11.0)
[2020-06-02 09:56] LABS: Alanine Aminotransferase 24 IU/L (<50); Albumin 4.5 g/dL (3.5-5.0); Albumin Globulin Ratio 1.5 (1.0-2.8); Alkaline Phosphatase 76 U/L (38-126); Aspartate Aminotransferase 31 IU/L (17-59); BUN Creatinine Ratio 16.9 (6-22); Bilirubin Total 1.2 mg/dL (0.2-1.3); Blood Urea Nitrogen 20 mg/dL (9-20); Calcium 9.5 mg/dL (8.4-10.2); Carbon Dioxide 28 mmol/L (22-32); Chloride 102 mmol/L (98-107); Cholesterol 147 mg/dL (140-199); Estimated Glomerular Filt Rate > 60.0 mL/min (>60); Glucose 106 mg/dL (80-110); HDL Cholesterol 38 mg/dL (40-60); HEMOLYSIS < 15 (0-50); LDL Cholesterol Calculated 78 mg/dL (<100); Potassium 4.4 mmol/L (3.4-5.1); Sodium 137 mmol/L (137-145); Total Protein 7.5 g/dL (6.3-8.2); Triglycerides 155 mg/dL (35-150)
[2020-06-02 10:25] LABS: TSH w/ Reflex to FT4 2.69 uIU/mL (0.47-4.68)
[2020-06-08 11:42] LABS: Percent Free Testosterone 3.54 % (1.50-4.20); Testosterone Free 18.17 ng/dL (5.00-21.00); Testosterone Total 513.4 ng/dL (264.0-916.0)
== END ==
PROVIDERS: PCP Family Medicine; Referring Provider Family Medicine; Visit Provider Family Medicine
DX: E29.1 Testicular hypofunction (principal); G62.9 Polyneuropathy, unspecified; Z13.220 Encounter for screening for lipoid disorders; Z13.228 Encounter for screening for other metabolic disorders; Z13.29 Encounter for screening for other suspected endocrine disorder
CPT/HCPCS: 36415; 80053; 80061; 84402; 84403; 84443; 85025

== ENCOUNTER → 2020-09-02 10:30 | Outpatient (CLI) | payer MEDICARE, OTHER, SELFPAY ==
[2019-07-08 11:16] VITALS: BMI 29.0
[2020-09-02 11:33] LABS: 585 Gram Check PASS; Dizziness NO; Postdiastolic BP 90; Postsystolic BP 143; Prediastolic 80; Presystolic 135; Pulse 64; Site of phlebotomy RAC; Swelling NO; Temperature 97.5; Therapeutic Phleb Comment NO COMMENT; Zero Check Sebra Scale PASS
[2020-09-02 12:30] LABS: Add Manual Diff / Slide Review NO; Basophils Absolute Auto 0 /uL (0-100); Basophils Percent Auto 0.7 % (0-2); Eosinophils Absolute Auto 100 /uL (0-450); Eosinophils Percent Auto 0.9 % (2-4); Hematocrit 53.8 % (41-53); Hemoglobin 17.4 g/dL (13.5-17.5); Lymphocytes Absolute Auto 1300 /uL (1100-4500); Lymphocytes Percent Auto 19.6 % (25-40); Mean Corpuscular HGB Conc 32.3 % (30-36); Mean Corpuscular Hemoglobin 25.6 PG (26-34); Mean Corpuscular Volume 79.4 fL (80-100); Monocytes Absolute Auto 700 /uL (0-900); Neutrophils Absolute Auto 4500 /uL (1500-7000); Neutrophils Percent Auto 67.8 % (50-75); Platelet Count 200 X10^3/uL (150-400); Red Blood Cell Count 6.78 X10^6/uL (4.5-5.9); Red Cell Distribution Width 18.2 % (11.6-14.8); White Blood Cell Count 6.6 X10^3/uL (4.5-11.0)
== END ==
PROVIDERS: PCP Family Medicine; Referring Provider Family Medicine; Visit Provider Family Medicine
DX: R71.8 Other abnormality of red blood cells (principal); K21.00 Gastro-esophageal reflux disease with esophagitis, without bleeding
CPT/HCPCS: 85025; 99195

== ENCOUNTER → 2020-11-10 12:40 | Outpatient (CLI) | payer MEDICARE, OTHER, SELFPAY ==
[2019-07-08 11:16] VITALS: BMI 29.0
--- NOTE | 2020-11-10 12:42 | DI.RAD.S_ITS ---
PROCEDURE: XR LUMBAR SPINE 2-3V INDICATIONS: Progressive lower back pain TECHNIQUE: 3 views of the lumbar spine were acquired. COMPARISON: None. FINDINGS: Bones: No acute fracture. Trace retrolisthesis of L2 on L3. Trace anterolisthesis of L3 on L4 and grade 1 anterolisthesis of L4 on L5. Multilevel degenerative endplate sclerosis and spurring. Diffuse facet arthropathy. Severe narrowing of the L5-S1 disc space. Mild to moderate narrowing of the remaining lumbar disc spaces. Soft tissues: Overlying bowel gas pattern is normal. No suspicious soft tissue calcifications. IMPRESSION: Lumbar spondylosis as above, most pronounced at L5-S1. Multilevel spondylolisthesis as above. Diffuse facet arthropathy. Dictated by: Maynor Garcia M.D. on 11/10/2020 at 13:42 Approved by: Maynor Garcia M.D. on 11/10/2020 at 13:44
== END ==
PROVIDERS: PCP Family Medicine; Referring Provider Family Medicine; Visit Provider Family Medicine
DX: M54.5 Low back pain (principal); M47.817 Spondylosis without myelopathy or radiculopathy, lumbosacral region; G89.29 Other chronic pain
CPT/HCPCS: 72100

== ENCOUNTER → 2020-12-28 11:04 | Outpatient (CLI) | payer MEDICARE, OTHER, SELFPAY ==
[2019-07-08 11:16] VITALS: BMI 29.0
--- NOTE | 2020-12-28 11:06 | DI.RAD.S_ITS ---
PROCEDURE: XR TOE RT MIN 2V INDICATIONS: toe infection, toe pain TECHNIQUE: 3 views of the 1st toe(s) acquired. COMPARISON: None. FINDINGS: Bones: No fractures or dislocations. No suspicious bony lesions. No erosions. Soft tissues: No suspicious soft tissue densities. IMPRESSION: No visualized erosions. If concern excess for osteomyelitis, bone scan or MRI is recommended. Dictated by: Liana Noguera M.D. on 12/28/2020 at 12:06 Approved by: Liana Noguera M.D. on 12/28/2020 at 12:07
== END ==
PROVIDERS: PCP Family Medicine; Referring Provider Registered Nurse; Visit Provider Registered Nurse
DX: M79.674 Pain in right toe(s) (principal)
CPT/HCPCS: 73660

== ENCOUNTER → 2020-12-28 11:21 | Outpatient (CLI) | payer MEDICARE, OTHER, SELFPAY ==
[2019-07-08 11:16] VITALS: BMI 29.0
[2020-12-28 12:13] LABS: Add Manual Diff / Slide Review NO; Basophils Absolute Auto 0 /uL (0-100); Basophils Percent Auto 0.6 % (0-2); Eosinophils Absolute Auto 100 /uL (0-450); Eosinophils Percent Auto 1.2 % (2-4); Hematocrit 55.1 % (41-53); Hemoglobin 17.7 g/dL (13.5-17.5); Lymphocytes Absolute Auto 1400 /uL (1100-4500); Mean Corpuscular HGB Conc 32.1 % (30-36); Mean Corpuscular Hemoglobin 26.7 PG (26-34); Mean Corpuscular Volume 83.1 fL (80-100); Monocytes Absolute Auto 600 /uL (0-900); Monocytes Percent Auto 9.5 % (3-14); Neutrophils Absolute Auto 4400 /uL (1500-7000); Neutrophils Percent Auto 67.7 % (50-75); Platelet Count 199 X10^3/uL (150-400); Red Blood Cell Count 6.63 X10^6/uL (4.5-5.9); Red Cell Distribution Width 18.7 % (11.6-14.8); White Blood Cell Count 6.5 X10^3/uL (4.5-11.0)
[2021-01-01 15:36] LABS: Testosterone Free 40.88 ng/dL (5.00-21.00)
== END ==
PROVIDERS: PCP Family Medicine; Referring Provider Family Medicine; Visit Provider Family Medicine
DX: D75.1 Secondary polycythemia (principal); R79.89 Other specified abnormal findings of blood chemistry
CPT/HCPCS: 36415; 84402; 84403; 85025

== ENCOUNTER → 2021-01-12 13:07 | Outpatient (CLI) | payer MEDICARE, OTHER, SELFPAY ==
[2019-07-08 11:16] VITALS: BMI 29.0
[2021-01-13 12:39] LABS: 585 Gram Check PASS; Dizziness NO; Postdiastolic BP 84; Postsystolic BP 142; Prediastolic 81; Presystolic 135; Pulse 62; Site of phlebotomy RAC; Swelling NO; Temperature 98; Therapeutic Phleb Comment NO COMMENT; Zero Check Sebra Scale PASS
== END ==
PROVIDERS: PCP Family Medicine; Referring Provider Urology; Visit Provider Urology
DX: D75.1 Secondary polycythemia (principal)
CPT/HCPCS: 99195

== ENCOUNTER → 2021-03-01 13:02 | Outpatient (CLI) | payer MEDICARE, OTHER, SELFPAY ==
[2019-07-08 11:16] VITALS: BMI 29.0
[2021-03-01 13:27] LABS: Hematocrit 52.3 % (41-53)
[2021-03-01 14:03] LABS: 585 Gram Check PASS; Dizziness NO; Postdiastolic BP 88; Postsystolic BP 137; Prediastolic 82; Presystolic 149; Pulse 76; Site of phlebotomy RAC; Swelling NO; Temperature 97.1; Therapeutic Phleb Comment NO COMMENT; Zero Check Sebra Scale PASS
== END ==
PROVIDERS: PCP Family Medicine; Referring Provider Urology; Visit Provider Urology
DX: D75.1 Secondary polycythemia (principal)
CPT/HCPCS: 85014; 99195

== ENCOUNTER → 2021-04-15 12:30 | Outpatient (CLI) | payer MEDICARE, SELFPAY ==
[2019-07-08 11:16] VITALS: BMI 29.0
[2021-04-15 12:50] LABS: Hematocrit 51.9 % (41-53); Hemoglobin 17.1 g/dL (13.5-17.5)
== END ==
PROVIDERS: PCP Family Medicine; Referring Provider Urology; Visit Provider Urology
DX: D75.1 Secondary polycythemia (principal)
CPT/HCPCS: 36415; 85014; 85018

== ENCOUNTER → 2021-07-01 09:55 | Outpatient (CLI) | payer MEDICARE, SELFPAY ==
[2019-07-08 11:16] VITALS: BMI 29.0
[2021-07-01 10:12] LABS: Hematocrit 52.1 % (41-53); Hemoglobin 17.2 g/dL (13.5-17.5)
== END ==
PROVIDERS: PCP Family Medicine; Referring Provider Urology; Visit Provider Urology
DX: D75.1 Secondary polycythemia (principal)
CPT/HCPCS: 36415; 85014; 85018

== ENCOUNTER → 2021-08-12 09:25 | Outpatient (CLI) | payer MEDICARE, SELFPAY ==
[2019-07-08 11:16] VITALS: BMI 29.0
[2021-08-12 09:58] LABS: Hematocrit 53.2 % (41-53)
[2021-08-12 10:52] LABS: Testosterone 532 ng/dL (71.8-623)
== END ==
PROVIDERS: PCP Family Medicine; Referring Provider Urology; Visit Provider Urology
DX: R79.89 Other specified abnormal findings of blood chemistry (principal)
CPT/HCPCS: 36415; 84403; 85014

== ENCOUNTER → 2021-10-20 08:20 | Outpatient (CLI) | payer MEDICARE, SELFPAY ==
[2019-07-08 11:16] VITALS: BMI 29.0
[2021-10-20 08:43] LABS: Hematocrit 56.1 % (41-53); Hemoglobin 18.8 g/dL (13.5-17.5)
[2021-10-20 10:04] LABS: 585 Gram Check PASS; Zero Check Sebra Scale PASS
[2021-10-20 10:05] LABS: Prediastolic 84; Presystolic 129; Pulse 65; Temperature 97.7
[2021-10-20 10:06] LABS: Dizziness NO; Postdiastolic BP 91; Postsystolic BP 144; Site of phlebotomy RAC; Swelling NO; Therapeutic Phleb Comment NO COMMENT
== END ==
PROVIDERS: PCP Family Medicine; Referring Provider Urology; Visit Provider Urology
DX: D75.1 Secondary polycythemia (principal)
CPT/HCPCS: 36415; 85014; 85018; 99195

== ENCOUNTER → 2021-12-28 11:26 | Outpatient (CLI) | payer MEDICARE, SELFPAY ==
[2019-07-08 11:16] VITALS: BMI 29.0
[2021-12-28 12:09] LABS: 585 Gram Check PASS; Dizziness NO; Postdiastolic BP 82; Postsystolic BP 138; Prediastolic 84; Presystolic 133; Pulse 75; Site of phlebotomy RAC; Swelling NO; Temperature 98.4; Therapeutic Phleb Comment NO COMMENT; Zero Check Sebra Scale PASS
== END ==
PROVIDERS: PCP Internal Medicine; Referring Provider Urology; Visit Provider Urology
DX: D75.1 Secondary polycythemia (principal)
CPT/HCPCS: 99195

== ENCOUNTER → 2022-02-25 13:57 | Outpatient (CLI) | payer MEDICARE, SELFPAY ==
[2019-07-08 11:16] VITALS: BMI 29.0
[2022-02-25 14:49] LABS: Influenza A - CEPHEID Flu A NEGATIVE (NEGATIVE); Influenza B - CEPHEID Flu B NEGATIVE (NEGATIVE)
[2022-02-25 15:19] LABS: COVID-19 CEPHEID 4-PLEX PCR Negative (Negative)
== END ==
PROVIDERS: PCP Internal Medicine; Visit Provider Physician Assistant
DX: R50.9 Fever, unspecified (principal); Z20.822 Contact with and (suspected) exposure to COVID-19
CPT/HCPCS: 0240U

== ENCOUNTER 2022-04-23 16:05 | Emergency (ER) | payer MEDICARE, SELFPAY ==
[2019-07-08 11:16] VITALS: BMI 29.0
[2022-04-23 16:17] VITALS: BP 141/74; PULSE 83; RESP 16; TEMP 36.3; O2SAT 96; BMI 31.8
--- NOTE | 2022-04-23 16:24 | DI.RAD.S_ITS ---
PROCEDURE: XR FINGER LT MIN 2V INDICATIONS: Sharp object injury TECHNIQUE: AP hand, 2 views of the 2nd finger(s) acquired. COMPARISON: None. FINDINGS: Bones: No fractures or dislocations. No suspicious bony lesions. Degenerative changes are seen throughout, which are most prominent involving the 1st carpometacarpal joint. Milder degenerative changes are seen elsewhere. Soft tissues: Soft tissue injury can be seen. No radiopaque foreign bodies are seen. IMPRESSION: Soft tissue injury, without associated bony abnormality. No radiopaque foreign bodies are seen. Dictated by: Ramses Gonzalez M.D. on 04/23/2022 at 15:43 Approved by: Ramses Gonzalez M.D. on 04/23/2022 at 15:44
[2022-04-23] MEDS: LIDOCAINE 2% INJ SDV 5ML 10 ML INJ (17:25)
--- NOTE | 2022-04-23 18:10 | ED.WOUNDLAC ---
HPI - Wound/Laceration <Ginna Greco PA-C - Last Filed: 04/23/22 21:16> General Chief Complaint: Wound/Laceration Stated Complaint: Left finger lac Time Seen by Provider: 04/23/22 16:55 Source: patient Mode of arrival: Ambulatory History of Present Illness HPI narrative: the patient is very pleasant 76 years old male who accidentally cut his left index finger with his pocket knife, and in semilunar fashion with a flap of skin bleeding profusely. He is seen in the emergency room wandering he needs stitches. He denies excessive pain, he was able to clean his wound best he could, He applied Band-Aid, and bleeding finally stopped. Patient states he is capable of opening and closing hand, as long as he is careful not to disturb the laceration. He denies any tingling or numbness in his 3rd digit. Onset (ago): hour(s) (2) Location: other ( Left hand, 3rd digit) Patient tetanus UTD: Yes Treatments prior to arrival: bandage Related Data Home Medications Medication Instructions Recorded Confirmed lisinopril 10 mg tablet 10 mg PO DAILY 06/17/18 03/07/22 Resprionics Dreamstation CPAP #1 ea 06/19/18 03/07/22 nicotinamide Ribdside Chloride 250 mg PO DAILY 06/19/18 03/07/22 pantoprazole 40 mg tablet,delayed 40 mg PO DAILY 06/19/18 03/07/22 release Xfuuia-Lhwx-Oyawjl-Fish Oil 1 cap PO DAILY 06/23/18 03/07/22 cholecalciferol (vitamin D3) 50 2,000 unit PO DAILY 06/23/18 03/07/22 mcg (2,000 unit) capsule (Vitamin D3) docosahexaenoic acid 200 mg 1 tab PO DAILY 06/23/18 03/07/22 capsule (Algal [place]-3 DHA) potassium 99 mg tablet 10 meq PO 2XW 06/23/18 03/07/22 multivit with min-folic acid PO 05/28/20 03/07/22 [Adult One Daily Multivitamin] vitamin B complex [B PO 05/28/20 03/07/22 Complex-Vitamin B12] papaverine 150 mg-phentolamin 5 ml intra-cavernosal 09/08/20 03/07/22 mg-alprost 50 mcg intracavernosal soln (Tri-Mix ([id number])) Previous Rx's Medication Instructions Recorded testosterone cypionate 200 mg/mL 80 mg (0.4 mL) IM Q4W #10 mL 08/13/20 intramuscular oil (Depo-Testosterone) epinephrine 0.3 mg/0.3 mL 0.3 mg (0.3 mL) IM ONCE PRN 08/20/20 injection, auto-injector (EpiPen anaphylaxis #1 ea 2-Bro) testosterone cypionate 200 mg/mL 100 mg (0.5 mL) IM Q4W #1 mL 09/07/20 intramuscular oil (Depo-Testosterone) ciclopirox 8 % topical solution 1 applic topical BEDTIME 4 weeks 12/28/20 #6.6 mL tamsulosin 0.4 mg capsule See Rx Instructions .Route 11/10/21 .COMPLEX #90 caps Allergies Allergy/AdvReac Type Severity Reaction Status Date / Time bee venom protein (honey bee) Allergy Severe localized Verified 04/23/22 16:17 swelling egg Allergy Severe potential Verified 04/23/22 16:17 anaphylaxis shellfish derived Allergy Severe anaphylaxis Verified 04/23/22 16:17 Review of Systems <Ginna Greco PA-C - Last Filed: 04/23/22 21:16> Review of Systems Narrative: 12 point review of systems is negative except for those stated above Patient History <Ginna Greco PA-C - Last Filed: 04/23/22 21:16> Medical History Abnormal chest xray (~2015) Acute UTI Allergies Ankle fracture, right Ankle pain (~1965) Arthritis BPH (benign prostatic hyperplasia) Chicken pox Chronic back pain (~1971) Dysphagia Eczema Enterococcus UTI Foot pain (~2004) Fractures GERD (gastroesophageal reflux disease) (~1994) Global amnesia (~2012) Hearing loss (~1999) HTN (hypertension) Hypogonadism Idiopathic neuropathy Klebsiella sepsis Low testosterone (~2004) Low testosterone Measles Migraines (~2009) Mumps Nephrolithiasis Obstructive sleep apnea of adult (~2017) Osteoarthritis Peripheral neuropathy (~2004) Polycythemia Polycythemia Sepsis Shoulder pain Toe pain Viral URI Surgical History H/O lithotripsy History of cataract removal with insertion of prosthetic lens (~2019) Status post left knee replacement Status post ORIF of fracture of ankle Total knee replacement status Family History Mother Parkinson disease Father Hypertension TIA (transient ischemic attack) Osteoarthritis Brother Congestive heart failure Son Anxiety Daughter Hypertension Social History household members: spouse Smoking Status: Never smoker alcohol intake: current (double shot every 2 wks ) substance use type: does not use Smoking Status: Never smoker alcohol intake frequency: a few times a month Substance Use Type: does not use Exam <Ginna Greco PA-C - Last Filed: 04/23/22 21:16> Narrative Exam Narrative: GENERAL: 76 year old patient appears stated age. Well-developed patient, in no acute distress. appears comfortable. HEAD: Atraumatic. Normocephalic. EYES: Pupils equal round and reactive. Extraocular motions intact. No scleral icterus. No injection or drainage. ENT: Nose without bleeding, purulent drainage. Throat without erythema, tonsillar hypertrophy or exudate. Airway patent. NECK: Trachea midline. Non tender CARDIOVASCULAR: Regular rate and rhythm without murmurs, gallops, or rubs. RESPIRATORY: Clear to auscultation. Breath sounds equal bilaterally. No wheezes, rales, or rhonchi. GASTROINTESTINAL: Abdomen soft, non-tender, nondistended. EXTREMITIES: No edema or joint tenderness. Osteoarthritis changes in both hands noticed. NEURO: AOx3. Left hand palmar aspect pinprick sensation intact. second digit flexion-extension is normal SKIN: No rash or erythema of visible areas Left hand palmar aspect approximately 3 cm superficial less than 2 mm laceration, with well-approximated edges on a left 2 nd digit The wound is clean and dry. Due to superficial nature of his laceration, sutures may not be required however repair with the surgical will may be indicated. Initial Vital Signs Initial Vital Signs: Vital Signs Temperature 97.3 F L 04/23/22 16:17 Pulse Rate 83 04/23/22 16:17 Respiratory Rate 16 04/23/22 16:17 Blood Pressure 141/74 H 04/23/22 16:17 Pulse Oximetry 96 04/23/22 16:17 Oxygen Delivery Method 04/23/22 16:17 <DO Toni Mendez Last Filed: 04/27/22 02:02> Initial Vital Signs Initial Vital Signs: Vital Signs Temperature 97.3 F L 04/23/22 16:17 Pulse Rate 83 04/23/22 16:17 Respiratory Rate 16 04/23/22 16:17 Blood Pressure 141/74 H 04/23/22 16:17 Pulse Oximetry 96 04/23/22 16:17 Oxygen Delivery Method 04/23/22 16:17 Procedures <Ginna Greco PA-C - Last Filed: 04/23/22 21:16> Laceration Repair Laceration 1: Size (cm): 3 Depth: simple, single layer (less then 2 mm more like skin flap ) Skin layer closed with: dermabond Technique: other (using surgical glue and steri strips ) Course <Ginna Greco PA-C - Last Filed: 04/23/22 21:16> Orders Ordered: Discontinued Medications Lidocaine HCl (Lidocaine 2% Inj Sdv 5ml) 10 ml INJ INTRA-OP ONE Stop: 04/23/22 17:22 Last Admin: 04/23/22 17:25 Dose: 10 ml Documented By: VAUGHN Vital Signs Vital signs: Vital Signs - 8 hr 04/23/22 16:17 Temperature 97.3 F L Pulse Rate 83 Respiratory Rate 16 Blood Pressure 141/74 H Pulse Oximetry 96 Oxygen Delivery Method Room Air <DO Toni Mendez Last Filed: 04/27/22 02:02> Orders Ordered: Discontinued Medications Lidocaine HCl (Lidocaine 2% Inj Sdv 5ml) 10 ml INJ INTRA-OP ONE Stop: 04/23/22 17:22 Last Admin: 04/23/22 17:25 Dose: 10 ml Documented By: VAUGHN Vital Signs Vital signs: Vital Signs - 8 hr 04/23/22 16:17 Temperature 97.3 F L Pulse Rate 83 Respiratory Rate 16 Blood Pressure 141/74 H Pulse Oximetry 96 Oxygen Delivery Method Room Air MDM - Wound/Laceration <SUZE Dodson Last Filed: 04/23/22 21:16> Imaging Data hand xray: Radiologist's Impression: No fractures or dislocations.? No suspicious bony lesions.? Degenerative changes are seen throughout, which are most prominent involving the 1st carpometacarpal joint.? Milder degenerative changes are seen elsewhere.? ?Soft tissues:? Soft tissue injury can be seen.? No radiopaque foreign bodies are seen. ??IMPRESSION:? Soft tissue injury, without associated bony abnormality. ?No radiopaque foreign bodies are seen.? ? MDM Narrative Medical decision making narrative: discussed with patient diagnosis and treatment He needs to repair his superficial 2 nd digit laceration Imaging reviewed: yes the laceration was repaired using dermabond post procedure care stressed Patient's symptoms improved over duration of stay with above-stated therapies. Findings and discharge diagnosis discussed with patient/family followed by verbalization of understanding Return precautions discussed with patient/family whom verbalize understanding of diagnosis and plan Discharge Plan Departure Patient Disposition: Home Clinical Impression: Finger laceration Instructions: DI for Minor Laceration Activity Restrictions/Additional Instructions: *You have been diagnosed with laceration left index finger which was repaired using surgical glue *What to do: *Please continue to take your regular medications as directed. care for the wound with protecting finger from bending, extending, moisture for next 5-7 days after that may remove dressing and apply triple antibiotic ointment 2-3 times a day No new medications given *Return to Emergency Department if you should have any new, worsening or concerning symptoms, such as significant bleeding in finger, redness , discharge, pain, fever greater than 101 F, shaking chills, worsening pain, persistent vomiting or other bothersome symptoms Prescriptions: No Action testosterone cypionate [Depo-Testosterone] 200 mg/mL oil 80 mg IM Q4W Qty: 10 0RF epinephrine [EpiPen 2-Bro] 0.3 mg/0.3 mL auto-injector 0.3 mg IM ONCE PRN (Reason: anaphylaxis) Qty: 1 1RF Rx Instructions: as a single dose testosterone cypionate [Depo-Testosterone] 200 mg/mL oil 100 mg IM Q4W Qty: 1 0RF Rx Instructions: Please dispense 6 1 mL vials Tri-Mix ([id number]) 150 mg-5 mg- 50 mcg recon soln intra-cavernosal tamsulosin 0.4 mg capsule See Rx Instructions .ROUTE .COMPLEX Qty: 90 3RF Dose Instruction: TAKE ONE CAPSULE BY MOUTH NIGHTLY AT BEDTIME Rx Instructions: TAKE ONE CAPSULE BY MOUTH NIGHTLY AT BEDTIME multivit with min-folic acid PO vitamin B complex PO ciclopirox 8 % solution 1 applic topical BEDTIME 28 Days Qty: 6.6 3RF potassium 99 mg Tablet 10 meq PO 2XW Algal [place]-3 DHA 200 mg Capsule 1 tab PO DAILY cholecalciferol (vitamin D3) [Vitamin D3] 2,000 unit Capsule 2,000 unit PO DAILY Vlhytn-Qdjs-Adiygt-Fish Oil 1 cap PO DAILY lisinopril 10 mg tablet 10 mg PO DAILY pantoprazole 40 mg tablet,delayed release (DR/EC) 40 mg PO DAILY Label Comments: Every Other Day. nicotinamide Ribdside Chloride 250 mg PO DAILY (DME) Resprionics Dreamstation CPAP Qty: 1 Dose Instruction: As directed Label Comments: Pressure: 6-14 cmH2O DME: [facility] Rx Instructions: As directed Referrals: Félix Hernandez MD [Primary Care Provider] - Stand Alone Forms: Patient Portal/API <Michelle Gutiérrez DO - Last Filed: 04/27/22 02:02> Cosign ED Attending [place] Attestation: I was immediately available in the department for consultation. Documentation has been reviewed.
== END 2022-04-23 18:24 | disposition home or self-care (01) ==
PROVIDERS: Emergency Provider Physician Assistant Medical; PCP Internal Medicine
DX: S61.211A Laceration without foreign body of left index finger without damage to nail, initial encounter (principal); W26.0XXA Contact with knife, initial encounter
CPT/HCPCS: 12001; 73140; 99283

== ENCOUNTER → 2022-05-02 10:02 | Outpatient (CLI) | payer MEDICARE, SELFPAY ==
[2019-07-08 11:16] VITALS: BMI 29.0
[2022-05-02 10:32] LABS: Hematocrit 55.7 % (41-53); Hemoglobin 18.3 g/dL (13.5-17.5)
[2022-05-02 11:13] LABS: Cholesterol 149 mg/dL (140-199); HDL Cholesterol 37 mg/dL (40-60); LDL Cholesterol Calculated 82 mg/dL (<100); Triglycerides 149 mg/dL (35-150)
[2022-05-08 15:08] LABS: Percent Free Testosterone 2.09 % (1.50-4.20); Testosterone Total 468.7 ng/dL (264.0-916.0)
[2022-05-09 07:46] LABS: 585 Gram Check PASS; Dizziness NO; Site of phlebotomy RAC; Swelling NO; Zero Check Sebra Scale PASS
== END ==
PROVIDERS: PCP Internal Medicine; Referring Provider Urology; Visit Provider Urology
DX: R79.89 Other specified abnormal findings of blood chemistry (principal); N40.1 Benign prostatic hyperplasia with lower urinary tract symptoms
CPT/HCPCS: 36415; 80061; 84153; 84402; 84403; 85014; 85018; 99195

== ENCOUNTER → 2022-06-28 09:59 | Outpatient (CLI) | payer MEDICARE, SELFPAY ==
[2019-07-08 11:16] VITALS: BMI 29.0
[2022-06-28 10:14] LABS: Hematocrit 52.7 % (41-53); Hemoglobin 17.3 g/dL (13.5-17.5)
== END ==
PROVIDERS: PCP Internal Medicine; Referring Provider Urology; Visit Provider Urology
DX: R79.89 Other specified abnormal findings of blood chemistry (principal); N40.1 Benign prostatic hyperplasia with lower urinary tract symptoms
CPT/HCPCS: 36415; 85014; 85018

== ENCOUNTER → 2022-09-05 10:01 | Outpatient (CLI) | payer OTHER, SELFPAY ==
[2019-07-08 11:16] VITALS: BMI 29.0
[2022-09-05 10:30] LABS: Hematocrit 52.5 % (41-53); Hemoglobin 17.6 g/dL (13.5-17.5)
== END ==
PROVIDERS: PCP Internal Medicine; Referring Provider Urology; Visit Provider Urology
DX: R71.8 Other abnormality of red blood cells (principal)
CPT/HCPCS: 36415; 85014; 85018

== ENCOUNTER 2024-04-25 10:08 | Emergency (ER) | payer MEDICARE, SELFPAY ==
[2019-07-08 11:16] VITALS: BMI 29.0
[2024-04-25] VITALS (8 sets, daily range): BP systolic 105–132; BP diastolic 59–82; PULSE 42–84; RESP 12–22; TEMP 36.9; O2SAT 93–98; BMI 36.9
--- NOTE | 2024-04-25 10:26 | ED.ABDPAIN ---
HPI - Abdominal Pain General Chief Complaint: Abdominal Pain Stated Complaint: Abdominal pain x 5 days Time Seen by Provider: 04/25/24 10:26 History of Present Illness HPI narrative: 78-year-old male history of hypertension comes into the ED from home for evaluation of abdominal pain ongoing persistent for the past 5 days, states that it is to his lower abdomen states that nothing makes it better or worse describes as ache, states that it is now periumbilical. She does have a history of umbilical hernia mesh repair performed in 2011, otherwise patient not complaining of any other symptoms at this time. Related Data Home Medications Medication Instructions Recorded Confirmed lisinopril 10 mg tablet 10 mg PO DAILY 06/17/18 03/07/22 Resprionics Dreamstation CPAP #1 ea 06/19/18 03/07/22 nicotinamide Ribdside Chloride 250 mg PO DAILY 06/19/18 03/07/22 pantoprazole 40 mg tablet,delayed 40 mg PO DAILY 06/19/18 03/07/22 release Iuwpao-Fnej-Rlbtew-Fish Oil 1 cap PO DAILY 06/23/18 03/07/22 cholecalciferol (vitamin D3) 50 2,000 unit PO DAILY 06/23/18 03/07/22 mcg (2,000 unit) capsule (Vitamin D3) docosahexaenoic acid 200 mg 1 tab PO DAILY 06/23/18 03/07/22 capsule (Algal Merrill-3 DHA) potassium 99 mg tablet 10 meq PO 2XW 06/23/18 03/07/22 multivit with min-folic acid PO 05/28/20 03/07/22 [Adult One Daily Multivitamin] vitamin B complex [B PO 05/28/20 03/07/22 Complex-Vitamin B12] papaverine 150 mg-phentolamin 5 ml intra-cavernosal 09/08/20 03/07/22 mg-alprost 50 mcg intracavernosal soln (Tri-Mix ([id number])) Previous Rx's Medication Instructions Recorded testosterone cypionate 200 mg/mL 80 mg (0.4 mL) IM Q4W #10 mL 08/13/20 intramuscular oil (Depo-Testosterone) epinephrine 0.3 mg/0.3 mL 0.3 mg (0.3 mL) IM ONCE PRN 08/20/20 injection, auto-injector (EpiPen anaphylaxis #1 ea 2-Bro) testosterone cypionate 200 mg/mL 100 mg (0.5 mL) IM Q4W #1 mL 09/07/20 intramuscular oil (Depo-Testosterone) ciclopirox 8 % topical solution 1 applic topical BEDTIME 4 weeks 12/28/20 #6.6 mL tamsulosin 0.4 mg capsule See Rx Instructions .Route 11/10/21 .COMPLEX #90 caps ciprofloxacin HCl 500 mg tablet 500 mg PO BID 1 week #14 tabs 04/25/24 metronidazole 500 mg tablet 500 mg PO Q8H 1 week #21 tabs 04/25/24 ondansetron 4 mg disintegrating 4 mg PO Q8H PRN nausea and 04/25/24 tablet vomiting 5 days #15 tabs Allergies Allergy/AdvReac Type Severity Reaction Status Date / Time bee venom protein (honey bee) Allergy Severe localized Verified 04/23/22 16:17 swelling egg Allergy Severe potential Verified 04/23/22 16:17 anaphylaxis shellfish derived Allergy Severe anaphylaxis Verified 04/23/22 16:17 Review of Systems Review of Systems Narrative: General: Denies fever, chills, weight loss HEENT: Denies headache, eye drainage, eye irritation, head trauma, sore throat, voice change Cardiovascular: Denies any chest pain, palpitations, shortness of breath, tachycardia Respiratory: Denies any shortness of breath, cough, wheeze, stridor GI/: Positive abdominal pain, denies nausea, vomiting, diarrhea, bright red blood per rectum, melanotic stools, urinary frequency, urinary retention, dysuria, hematuria MSK: Denies any joint pain, muscle pains, swelling Skin: Denies any rashes, lesions, discoloration Neuro: Denies any headache, lightheadedness, dizziness, fainting, weakness Psych: Denies SI/HI Patient History Medical History Abnormal chest xray (~2015) Acute UTI Allergies Ankle fracture, right Ankle pain (~1965) Arthritis BPH (benign prostatic hyperplasia) Chicken pox Chronic back pain (~1971) Dysphagia Eczema Enterococcus UTI Foot pain (~2004) Fractures GERD (gastroesophageal reflux disease) (~1994) Global amnesia (~2012) Hearing loss (~1999) HTN (hypertension) Hypogonadism Idiopathic neuropathy Klebsiella sepsis Low testosterone (~2004) Low testosterone Measles Migraines (~2009) Mumps Nephrolithiasis Obstructive sleep apnea of adult (~2017) Osteoarthritis Peripheral neuropathy (~2004) Polycythemia Polycythemia Sepsis Shoulder pain Toe pain Viral URI Surgical History H/O lithotripsy History of cataract removal with insertion of prosthetic lens (~2019) Status post left knee replacement Status post ORIF of fracture of ankle Total knee replacement status Family History Mother Parkinson disease Father Hypertension TIA (transient ischemic attack) Osteoarthritis Brother Congestive heart failure Son Anxiety Daughter Hypertension Social History household members: spouse Smoking Status: Never smoker alcohol intake: current (double shot every 2 wks ) substance use type: does not use Smoking Status: Never smoker alcohol intake frequency: a few times a month Exam Narrative Exam Narrative: General: Cooperative, comfortable, well-developed, not in acute distress HEENT: Normocephalic, atraumatic, PERRLA, normal sclera, eyelids normal, Neck: Active full range of motion, atraumatic Chest: Normal to inspection, negative crepitus, no overlying erythema ecchymosis Respiratory: Normal respiratory effort, not in acute respiratory distress, clear to auscultation bilaterally negative cough, wheeze, tachypnea, rhonchi, rales Cardiology: Regular rate rhythm negative gallop, murmur, rubs GI/: Normal to inspection, soft, nonrigid, no tenderness to palpation, exam deferred MSK: Full range of active range of motion of all 4 extremities, atraumatic Skin: No rashes lesions noted Neuro: Alert awake oriented x3, moves all 4 extremities spontaneously, cranial nerves intact, able to answer all questions appropriately follows commands appropriately Psych: Cooperative, negative suicidal or homicidal ideations Initial Vital Signs Initial Vital Signs: Vital Signs Pulse Rate 78 04/25/24 10:17 Pulse Oximetry 98 04/25/24 10:17 Course Orders Ordered: ED Orders 04/25/24 10:28 EKG-12 Lead Stat 04/25/24 10:33 CT abdomen pelvis w con Stat 04/25/24 10:50 Complete Blood Count AUTO DIFF Stat Comprehensive Metabolic Panel Stat Lactate (Lactic Acid) Stat Lipase Stat MAG [Magnesium] Stat 04/25/24 11:53 Urine Microscopic Stat Discontinued Medications Ciprofloxacin (Ciprofloxacin 250 Mg Tablet) 500 mg PO NOW ONE Stop: 04/25/24 12:39 Metronidazole (Metronidazole 500 Mg Tablet) 500 mg PO NOW ONE Stop: 04/25/24 12:39 Vital Signs Vital signs: Vital Signs - 8 hr 04/25/24 10:17 04/25/24 10:25 04/25/24 10:30 Temperature 98.5 F Pulse Rate 78 82 Respiratory Rate 16 Blood Pressure 132/70 127/82 Pulse Oximetry 98 95 Oxygen Delivery Method Room Air 04/25/24 10:30 04/25/24 11:00 04/25/24 11:00 Temperature Pulse Rate 77 83 Respiratory Rate 15 Blood Pressure 108/63 Pulse Oximetry 96 93 Oxygen Delivery Method Room Air 04/25/24 11:30 04/25/24 11:30 Temperature Pulse Rate 84 Respiratory Rate 12 Blood Pressure 112/68 Pulse Oximetry 93 Oxygen Delivery Method Room Air MDM - Abdominal Pain Differential Diagnosis Differential diagnosis: Likely abdominal pain, acute appendicitis, constipation, diverticulitis, small bowel obstruction and other (Urinary tract infection, electrolyte abnormality) Lab Data 04/25/24 10:50 04/25/24 10:50 Labs: Lab Results 04/25/24 04/25/24 Range/Units 10:50 11:53 WBC 8.6 (4.5-11.0) X10^3/uL RBC 5.64 (4.5-5.9) X10^6/uL Hgb 16.9 (13.5-17.5) g/dL Hct 50.6 (41-53) % MCV 89.8 (80-100) fL MCH 30.0 (26-34) PG MCHC 33.5 (30-36) % RDW 16.1 H (11.6-14.8) % Plt Count 179 (150-400) X10^3/uL Neut % (Auto) 80.0 H (50-75) % Lymph % (Auto) 11.9 L (25-40) % Pepin % (Auto) 7.1 (3-14) % Eos % (Auto) 0.6 L (2-4) % Baso % (Auto) 0.4 (0-2) % Neut # (Auto) 6900 (2883-3582) /uL Lymph # (Auto) 1000 L (3623-2892) /uL Pepin # (Auto) 600 (0-900) /uL Eos # (Auto) 100 (0-450) /uL Baso # (Auto) 0 (0-100) /uL Sodium 136 L (137-145) mmol/L Potassium 4.5 (3.4-5.1) mmol/L Chloride 106 (98-107) mmol/L Carbon Dioxide 24 (22-32) mmol/L BUN 28 H (9-20) mg/dL Creatinine 1.21 (0.66-1.25) mg/dL Estimated GFR > 60 (>60) mL/min BUN/Creatinine Ratio 23.1 H (6-22) Glucose 101 (80-110) mg/dL Lactate 1.4 (0.7-2.1) mmol/L Calcium 8.7 (8.4-10.2) mg/dL Magnesium 2.0 (1.6-2.3) mg/dL Total Bilirubin 0.9 (0.2-1.3) mg/dL AST 31 (17-59) IU/L ALT 25 (<50) IU/L Alkaline Phosphatase 78 (38-126) U/L Total Protein 6.7 (6.3-8.2) g/dL Albumin 3.9 (3.5-5.0) g/dL Globulin 2.8 (1.7-4.1) g/dL Albumin/Globulin Ratio 1.4 (1.0-2.8) Lipase 145 (23-300) U/L Urine RBC None seen (0-5/HPF) Urine WBC None seen (0-5/HPF) Ur Squamous Epith Cells None seen (0-5/HPF) Urine Bacteria None seen (None) Ur Culture Indicated? Cult not indicated Vol Urine Centrifuged 10ml (spun) Point of care testing: Urine Dip Bedside Urine Glucose Negative Bedside Urine Bilirubin - Negative Bedside Urine Ketone - Negative Urine Specific [place] 1.015 Bedside Urine Occult Blood - Negative Bedside Urine pH 7.0 Bedside Urine Protein + 30 Bedside Urine Urobilinogen - Negative Bedside Urine Nitrite - Negative Bedside Urine Leukocytes - Negative Esterase Imaging Data CT scan - abdomen/pelvis: Radiologist's Impression: [address] [address] [address] Scan Report Signed Patient: Venancio Austin MR#: [id number] : 1945 Acct:[id number] Age/Sex: 78 / M Date of Service: 04/25/24 Loc: ED Accession Number: [id number] Procedure: CT abdomen pelvis w con Ordering Provider: Peter Alvarenga D.O. PROCEDURE: CT ABDOMEN PELVIS W CON INDICATIONS: Periumbilical/lower abdominal pain TECHNIQUE: After the administration of intravenous contrast, axial sections acquired from the lung bases to the pubic symphysis. Coronal and sagittal reformats were performed. For radiation dose reduction, the following was used: automated exposure control, adjustment of mA and/or kV according to patient size. COMPARISON: [facility], CT, CT ABDOMEN PELVIS W CON, 07/09/2019, 16:09. FINDINGS: Image quality: Diagnostic Lower chest: Basal atelectasis. Normal heart size. Liver: Unremarkable Gallbladder and biliary system: Unremarkable, nondilated Pancreas: No ductal dilation Spleen: Nonenlarged Adrenals: No discrete nodules Kidneys: Scattered renal cysts. No hydronephrosis. No solid renal mass. Vessels and lymph nodes: The main portal vein is patent. No abdominal aortic aneurysm. No pathologic lymphadenopathy by size criteria. Bowel and peritoneum: No evidence of small bowel obstruction. No pathologic ascites. Colonic diverticula are seen. Wall thickening again seen in the distal colon. There is mild focal inflammatory changes at the anterior serosa of the proximal sigmoid. Body wall: Unremarkable Pelvis: Bladder is unremarkable. There is likely impingement at the bladder neck from BPH and median lobe hypertrophy. Heterogeneous prostate enhancement with calcifications are also noted. This is not well assessed on CT. Bones: No acute or suspicious osseous finding. IMPRESSION: Acute diverticulitis of the sigmoid. Consider colonoscopy follow-up following clinical treatment. No abscess or small bowel obstruction. As before, there is prostatomegaly, probable BPH with heterogeneous prostate enhancement, and bladder neck impingement due to median lobe hypertrophy. Consider correlation with PSA and possible prostate MRI for further evaluation if clinically indicated. ECG Data Interpretation: EKG interpreted ED physician sinus 75 beats per minute QTC 395, normal axis nonspecific ST changes no STEMI MDM Narrative Medical decision making narrative: 78-year-old male history of umbilical hernia mesh repair in 2011 presenting for lower abdominal and periumbilical abdominal pain ongoing persistent for the past 5 days. No nausea vomiting normal bowel movements no other urinary symptoms. Patient had lab work imaging performed here in the emergency department, patient without leukocytosis urinalysis not consistent with a urinary tract infection, however CT scan does show acute diverticulitis of the sigmoid without abscess or small bowel obstruction. Patient on re-evaluation at discharge nontoxic-appearing repeat abdominal exam is soft nontender non peritoneal nature, patient will be discharged home with oral antibiotics Flagyl ciprofloxacin was instructed to follow up with PCP and GI in outpatient setting patient was given strict return precautions he verbalized understanding of this and agrees to being discharged home with outpatient follow up Discharge Plan Departure Patient Disposition: Home Clinical Impression: Acute diverticulitis Instructions: DI for Diverticulitis Activity Restrictions/Additional Instructions: Please follow up with your PCP and your GI doctor in outpatient setting Please read the discharge instructions sheet carefully and bring all papers to all doctor follow-up visits, as it may contain information that your doctor may want to see. Disease processes change and evolve, if your symptoms worsen or if you develop any new symptoms that are concerning to you please return for evaluation. Your evaluation today does not show any evidence of any life-threatening/serious illnesses requiring admission to the hospital or surgery. Please follow-up with your doctor for re-evaluation in approximately 1 day. Seek immediate medical attention for any worrisome symptoms. *If you do not have a primary care provider please contact the [facility] Resource line at [phone]. They will ask some questions about your medical history and help get you set up with a doctor in the community. Prescriptions: New metronidazole 500 mg tablet 500 mg PO Q8H 7 Days Qty: 21 0RF ciprofloxacin HCl 500 mg tablet 500 mg PO BID 7 Days Qty: 14 0RF ondansetron 4 mg tablet,disintegrating 4 mg PO Q8H PRN (Reason: nausea and vomiting) 5 Days Qty: 15 0RF No Action testosterone cypionate [Depo-Testosterone] 200 mg/mL oil 80 mg IM Q4W Qty: 10 0RF epinephrine [EpiPen 2-Bro] 0.3 mg/0.3 mL auto-injector 0.3 mg IM ONCE PRN (Reason: anaphylaxis) Qty: 1 1RF Rx Instructions: as a single dose testosterone cypionate [Depo-Testosterone] 200 mg/mL oil 100 mg IM Q4W Qty: 1 0RF Rx Instructions: Please dispense 6 1 mL vials Tri-Mix ([id number]) 150 mg-5 mg- 50 mcg recon soln intra-cavernosal tamsulosin 0.4 mg capsule See Rx Instructions .ROUTE .COMPLEX Qty: 90 3RF Dose Instruction: TAKE ONE CAPSULE BY MOUTH NIGHTLY AT BEDTIME Rx Instructions: TAKE ONE CAPSULE BY MOUTH NIGHTLY AT BEDTIME multivit with min-folic acid PO vitamin B complex PO ciclopirox 8 % solution 1 applic topical BEDTIME 28 Days Qty: 6.6 3RF potassium 99 mg Tablet 10 meq PO 2XW Algal Merrill-3 DHA 200 mg Capsule 1 tab PO DAILY cholecalciferol (vitamin D3) [Vitamin D3] 2,000 unit Capsule 2,000 unit PO DAILY Sidgxz-Pmbz-Iwrkml-Fish Oil 1 cap PO DAILY lisinopril 10 mg tablet 10 mg PO DAILY pantoprazole 40 mg tablet,delayed release (DR/EC) 40 mg PO DAILY Patient Comments: Every Other Day. nicotinamide Ribdside Chloride 250 mg PO DAILY (DME) Resprionics Dreamstation CPAP Qty: 1 Dose Instruction: As directed Patient Comments: Pressure: 6-14 cmH2O DME: [facility] Rx Instructions: As directed Referrals: Maddi Rose MD [Primary Care Provider] - Stand Alone Forms: Patient Portal/API/Survey
--- NOTE | 2024-04-25 10:29 | EKG_ITS ---
[address] [address] Test Date: 2024-04-25 Pat Name: Venancio Austin Department: Room: Gender: Male Dogman/Woman: ABHIJEET : 1945 Requested By: Order Number: [id number] Reading MD: Peter Galeano Measurements Intervals [place] Rate: 75 P: 62 OK: 158 QRS: 24 QRSD: 88 T: 21 QT: 354 QTc: 395 Interpretive Statements Normal sinus rhythm Electronically Signed On 04-30-2024 23:41:48 PST by Peter Galeano
--- NOTE | 2024-04-25 10:33 | DI.CT.S_ITS ---
PROCEDURE: CT ABDOMEN PELVIS W CON INDICATIONS: Periumbilical/lower abdominal pain TECHNIQUE: After the administration of intravenous contrast, axial sections acquired from the lung bases to the pubic symphysis. Coronal and sagittal reformats were performed. For radiation dose reduction, the following was used: automated exposure control, adjustment of mA and/or kV according to patient size. COMPARISON: [facility], CT, CT ABDOMEN PELVIS W CON, 07/09/2019, 16:09. FINDINGS: Image quality: Diagnostic Lower chest: Basal atelectasis. Normal heart size. Liver: Unremarkable Gallbladder and biliary system: Unremarkable, nondilated Pancreas: No ductal dilation Spleen: Nonenlarged Adrenals: No discrete nodules Kidneys: Scattered renal cysts. No hydronephrosis. No solid renal mass. Vessels and lymph nodes: The main portal vein is patent. No abdominal aortic aneurysm. No pathologic lymphadenopathy by size criteria. Bowel and peritoneum: No evidence of small bowel obstruction. No pathologic ascites. Colonic diverticula are seen. Wall thickening again seen in the distal colon. There is mild focal inflammatory changes at the anterior serosa of the proximal sigmoid. Body wall: Unremarkable Pelvis: Bladder is unremarkable. There is likely impingement at the bladder neck from BPH and median lobe hypertrophy. Heterogeneous prostate enhancement with calcifications are also noted. This is not well assessed on CT. Bones: No acute or suspicious osseous finding. IMPRESSION: Acute diverticulitis of the sigmoid. Consider colonoscopy follow-up following clinical treatment. No abscess or small bowel obstruction. As before, there is prostatomegaly, probable BPH with heterogeneous prostate enhancement, and bladder neck impingement due to median lobe hypertrophy. Consider correlation with PSA and possible prostate MRI for further evaluation if clinically indicated. Other findings above. Dictated by: Cristofer Guzman M.D. on 04/25/2024 at 12:29 Approved by: Cristofer Guzman M.D. on 04/25/2024 at 12:34
[2024-04-25 11:10] LABS: Add Manual Diff / Slide Review NO; Basophils Absolute Auto 0 /uL (0-100); Basophils Percent Auto 0.4 % (0-2); Eosinophils Absolute Auto 100 /uL (0-450); Eosinophils Percent Auto 0.6 % (2-4); Hematocrit 50.6 % (41-53); Hemoglobin 16.9 g/dL (13.5-17.5); Lymphocytes Absolute Auto 1000 /uL (1100-4500); Lymphocytes Percent Auto 11.9 % (25-40); Mean Corpuscular HGB Conc 33.5 % (30-36); Mean Corpuscular Volume 89.8 fL (80-100); Monocytes Absolute Auto 600 /uL (0-900); Monocytes Percent Auto 7.1 % (3-14); Neutrophils Absolute Auto 6900 /uL (1500-7000); Platelet Count 179 X10^3/uL (150-400); Red Blood Cell Count 5.64 X10^6/uL (4.5-5.9); Red Cell Distribution Width 16.1 % (11.6-14.8); White Blood Cell Count 8.6 X10^3/uL (4.5-11.0)
[2024-04-25 11:22] LABS: Alanine Aminotransferase 25 IU/L (<50); Albumin 3.9 g/dL (3.5-5.0); Albumin Globulin Ratio 1.4 (1.0-2.8); Alkaline Phosphatase 78 U/L (38-126); Aspartate Aminotransferase 31 IU/L (17-59); BUN Creatinine Ratio 23.1 (6-22); Bilirubin Total 0.9 mg/dL (0.2-1.3); Blood Urea Nitrogen 28 mg/dL (9-20); Calcium 8.7 mg/dL (8.4-10.2); Carbon Dioxide 24 mmol/L (22-32); Chloride 106 mmol/L (98-107); Estimated Glomerular Filt Rate > 60 mL/min (>60); Globulin 2.8 g/dL (1.7-4.1); Glucose 101 mg/dL (80-110); HEMOLYSIS 35 (0-50); Lactate (Lactic Acid) 1.4 mmol/L (0.7-2.1); Lipase 145 U/L (23-300); Potassium 4.5 mmol/L (3.4-5.1); Sodium 136 mmol/L (137-145); Total Protein 6.7 g/dL (6.3-8.2)
[2024-04-25 12:28] LABS: Urine Volume 10mL (spun)
[2024-04-25 12:32] LABS: Bacteria Urine None Seen; Culture Indicated Urine Cult Not Indicated; RBC Urine None Seen (0-5/HPF); Squamous Epithelial Cell Urine None Seen (0-5/HPF); WBC Urine None Seen (0-5/HPF)
[2024-04-25] MEDS: CIPROFLOXACIN 250 MG TABLET 500 MG PO (12:58)
[2024-04-25] MEDS: metroNIDAZOLE 500 MG TABLET PO (13:01)
== END 2024-04-25 13:18 | disposition home or self-care (01) ==
PROVIDERS: Emergency Provider Student in an Organized Health Care Education/Training Program; PCP Internal Medicine
DX: K57.32 Diverticulitis of large intestine without perforation or abscess without bleeding (principal); I10 Essential (primary) hypertension; Z87.19 Personal history of other diseases of the digestive system
CPT/HCPCS: 36415; 74177; 80053; 81003; 81015; 83605; 83690; 83735; 85025; 93005; 99284; Q9967